=== PATIENT | male | born 1985 | race Caucasian/White ===

== ENCOUNTER 2024-12-09 20:03 | Inpatient (IN) | payer OTHER, SELFPAY ==
[2024-12-09] VITALS (45 sets, daily range): BP systolic 81–158; BP diastolic 42–109; BMI 34.6
[2024-12-09 17:52] LABS: % Basophils 0.6 % (0-2); % Eosinophils 4.4 % (0-6); % Immature Granulocytes 0.4 % (0-0.5); % Lymphocytes 18.1 % (20.5-51.1); % Monocytes 10.3 % (1.7-9.3); % Neutrophils 66.2 % (42.2-75.2); Absolute Basophils 0.1 10^3/uL (0-0.2); Absolute Eosinophils 0.4 10^3/uL (0-0.7); Absolute Lymphocytes 1.6 10^3/uL (1.2-3.4); Absolute Monocytes 0.9 10^3/uL (0.1-0.6); Absolute Neutrophils 5.9 10^3/uL (1.4-6.5); Hematocrit 37.2 % (39.0-52.0); Hemoglobin 12.4 g/dL (13.0-18.0); Mean Corp Hgb Conc. 33.3 g/dL (33.0-37.0); Mean Corpuscular Hgb 29.2 pg (27.0-31.0); Mean Corpuscular Volume 87.7 fL (80.0-94.0); Mean Platelet Volume 11.1 fL (7.4-10.4); Nucleated Red Blood Cells % 0 % (-); Platelet Count 179 10^3/uL (130-400); Red Blood Cell Count 4.24 10^6/uL (4.70-6.10); Red Cell Dist. Width 13.5 % (11.5-14.5); White Blood Cell Count 8.9 10^3/uL (4.8-10.8)
[2024-12-09] MEDS: NARCAN 2 MG IV (18:06)
--- NOTE | 2024-12-09 18:07 | PHANOTE ---
med rec note- patient has no recent ecw, ecw from 2021 no current pdmp and only pharmacy Available. no family with patient
--- NOTE | 2024-12-09 18:10 | ED.GENMED ---
History of Present Illness
<Lindsey Law PA-C - Last Filed: 12/11/24 09:38>
General
Chief Complaint: Overdose Intentional
Source: ambulance crew
Exam Limitations: clinical condition and altered mental status
Time Seen by Provider: 12/09/24 18:07
Nursing documentation reviewed up to this point in time: agreed with
History of Present Illness
History of Present Illness:
PT IS A 39 Y/O M
known drug abuse
alcohol abuse
history given by his on the phone ane EMS
just released from [facility]
found him slumpd in the shower but was ablle to wake him up, he was able to walk but then got drowsy again and laid down on the bed, lips were blue
but he was breathing
found his phone and saw he took a n uber to [facility] today
and she saw that he had a pill bottle of 60 klonopin and 30 were missing and she believes he used heroin and probably xanx too
pt was unreasponbive for EMS
they placed nasal trumpet and gave 6 mg total iv narcan without response
pt is obtunded
Past History
<Lindsey Law PA-C - Last Filed: 12/11/24 09:38>
Past History
ED Past Medical History: Psychiatric (Bipolar disorder, substance abuse) and Other (Hepatitis C, Overdose); Negative Asthma, HTN, Hypercholesterolemia or NIDDM
ED Past Surgical History: Orthopedic and Other (Partial thyroidectomy)
Social History
Tobacco: Smoker
Alcohol: None
Drug: Cocaine, Narcotics and IVDA
Personal:
Living: with family (According to Millie raines, currently on house arrest)
Employment: Not employed
Family History
Family History: Other (Noncontributory)
Review of Systems
<Lindsey Law PA-C - Last Filed: 12/11/24 09:38>
Review of Systems
Allergies reviewed?: Yes
Unable to obtain full review of systems at this time due to: due to acuity
Other source history: family
All Other Systems: Not applicable
Phy Exam
<Lindsey Law PA-C - Last Filed: 12/11/24 09:38>
Physical Exam
Physical Exam:
GENERAL: obtunded, unresponsive, breathing spontaneously,
EYE: pupils equal and reactive pinpoint
NECK: Supple
ENT: o/p clr, mmm.
CARDIAC: Regular rate and rhythm .
LUNGS: rhonchi, no acute respiratory distress, no wheezes/rales/
ABDOMEN: Soft, without focal tenderness, no r/g, no cvat, normal bowel sounds
NEUROLOGICAL: unresponsive
SKIN: Warm and dry, skin intact.
MUSCULOSKELETAL: No edema, well perfused. neg emerita's sign
PSYCH: unresponsive
Course
<Lindsey Law PA-C - Last Filed: 12/11/24 09:38>
Orders/Labs/Results
Orders:
Orders
12/09/24 Dinner
NPO
Allow oral meds: No
Allow clear liquids: No
12/09/24 17:43
Complete Blood Count/With Diff Urgent
Urine Drug Abuse Screen Urgent
Date Specimen was Collected: 12/09/24
Time Specimen was Collected: 17:42
Urine Fentanyl [Fentanyl, Urine] Urgent
12/09/24 17:45
EKG [Electrocardiogram (*1)] Urgent
Reason for Study: Tachycardia
EKG- Treatment ONCE
12/09/24 18:04
Naloxone [Narcan] 2 mg .ROUTE .STK-MED ONE
12/09/24 18:06
Naloxone [Narcan] 2 mg IV NOW STA
12/09/24 18:16
Etomidate [Amidate] 20 mg IV NOW STA
12/09/24 18:23
Succinylcholine Chloride [Anectine] 70 mg IV NOW STA
12/09/24 18:27
Rocuronium [place] [Rocuronium] 70 mg IV NOW STA
12/09/24 18:32
Portable Chest Xray [CR Chest Portable - 1 View] Urgent
Comment:
Reason For Exam: inbation
Reason Study Needs to be Portable: Patient Unstable
12/09/24 18:43
Acetaminophen Urgent
Alcohol Urgent
Comprehensive Metabolic Panel Urgent
Salicylate Urgent
Comment: ADD ON
Triglycerides Urgent
Comment: ADD ON
12/09/24 18:45
Ventilator Initial Settings [RESP] Urgent
Tidal Volume: 550
Rate: 16
FIO2: 60
PEEP: 5
12/09/24 18:46
Etomidate [Amidate] 40 mg .ROUTE .STK-MED ONE
Rocuronium [place] [Rocuronium] 100 mg .ROUTE .STK-MED ONE
12/09/24 19:02
Admit/Transfer Patient As Directed
Co-Sign Provider:
Level of Care: Inpatient admission
Assign to:: ICU
Physician / Group: hospitalist
Diagnosis: intentional drug overdose
Reason for Hospitalization: loss of consciousness due to drug overdose
Expected length of stay greater than two midnights?: Yes
ELOS- Estimated Length of Stay in days: 2
I certify the patient meets the requirements for IP care: Yes
CT Head W/o Iv Contrast Stat
Comment:
Reason For Exam: loss of consciousness
12/09/24 19:03
Code Status As Directed
Resuscitation Status: Full Code
PRN Pain Medication Management As Directed
May give lesser potent ordered pain med per pt: Yes
preference::
Protocol:: Medication orders for pain may be administered in a
manner that supports deferring to patient preference
when the pt is:
- Requesting an ordered lesser potent pain medication.
Least to most potent pain medications are defined
as: acetaminophen < NSAID < tramadol < opioids
(morphine, oxycodone, hydromorphone).
- Requesting a lesser dose of the same medication IF
ORDERED.
- Requesting a less intrusive route of administration
if both routes are prescribed by the provider (PO <
IV).
12/09/24 19:26
Pulse Ox/cont/shift [RESP] Routine
Quantity: 1
Special Instructions: continuous pulse oximetry with audible alarm set at 92%
12/09/24 19:39
Propofol [Diprivan] 20 ml .ROUTE .STK-MED
12/09/24 19:43
Propofol 1,000,000 Mcg/100 ml [Diprivan] 1,000,000 mcg in 100 ml .ROUTE .STK-MED
12/09/24 19:44
Lactated Ringers [Lr] 1,000 ml IV BOLUS
12/09/24 20:00
Propofol 1,000,000 Mcg/100 ml [Diprivan] 1,000,000 mcg in 100 ml IV PER PROTOCOL
Indication:: Deep Sedation
Begin Infusion:: Now
Goal:: RASS -3 to -5 or BIS < 60 or ventilator synchrony
Maximum dose in mcg/kg/min:: 50
Continue currently infusion dose and titrate:: Yes
Titration Instructions:: Titrate by 5-10 mcg/kg/min every 5 minutes until RASS -3 to -5 or
Titration Instructions:: BIS < 60 or ventilator synchrony is met.
Titration Instructions:: Administer analgesia bolus dose(s) & titrate analgesia prior to
Titration Instructions:: adjusting sedation.
Taper Instructions:: If RASS is at or below goal for 4 consecutive hours decrease infusion by
Taper Instructions:: 5-10 mcg/kg/min every 2 hours. Do not wean infusion to off if patient is
Taper Instructions:: receiving a continuous NMBA or has received bolus NMBA with the past 3 hrs
Over-sedation Instructions:: If BIS < 40 and synchronous with ventilator decrease infusion by
Over-sedation Instructions:: 5-10 mcg/kg/min every 2 hour until BIS = 40-60.
Notify provider:: immediately if patient exhibits signs/symptoms of propofol-related
Notify provider:: infusion syndrome.
Additional Instructions:: Patient MUST be mechanically ventilated and MUST receive analgesia.
12/09/24 20:48
Acetaminophen [Tylenol/Feverall] 650 mg RECTAL Q4HPRN PRN
Albuterol Nebs [Ventolin Nebules] 2.5 mg INH R QID
Bisacodyl [Dulcolax] 10 mg RECTAL [id number] PRN
Dextrose 5%/0.45%Sodchl 1000ML [D5/0.45%NaCl] 1,000 ml IV 100 mls/hr
Ipratropium/Albuterol Sulfate [Duoneb] 3 ml INH R Q4HPRN PRN
Ondansetron Injectable [Zofran] 4 mg IV Q6HPRN PRN
12/09/24 20:48
Hide Cleaner Consult Routine
Consulting Provider: Marquis Gutierrez
Was physician already notified: Yes
Reason for consult: Intentional overdose, LOC and intubated
Activity As Directed
Activity Level: With Assistance
Capnography/ETCO2 As Directed
Gastrointestinal Tubes As Directed
To suction?: Yes
Type of suction: Low intermittent
Intake/ Output As Directed
Frequency: Per unit guidelines
Vital Signs As Directed
Frequency: Per unit guidelines
Pulse Ox/cont/shift [RESP] Routine
Quantity: 1
Special Instructions: continuous pulse oximetry with audible alarm set at 92%
DX Deep Vein Thrombosis Video Routine
12/09/24 21:45
Arterial Blood Gas Routine
%Oxygen/Room Air: 70
12/10/24 05:03
Basic Metabolic Panel IN AM
Complete Blood Count/No Diff IN AM
12/10/24 08:00
Pantoprazole [Protonix IV] 40 mg IV DAILY
12/10/24 18:00
Enoxaparin Sodium [Lovenox] 40 mg SC QPM
12/12/24 06:00
Triglycerides Q3D
Comment: every 72 hours while patient is on propofol
12/15/24 06:00
Triglycerides Q3D
Comment: every 72 hours while patient is on propofol
12/18/24 06:00
Triglycerides Q3D
Comment: every 72 hours while patient is on propofol
Abnormal Lab Results
12/09/24 12/09/24
17:43 18:43
RBC 4.24 L 10^6/uL
(4.70-6.10)
Hgb 12.4 L g/dL
(13.0-18.0)
Hct 37.2 L %
(39.0-52.0)
MPV 11.1 H fL
(7.4-10.4)
Absolute Monos (auto) 0.9 H 10^3/uL
(0.1-0.6)
Lymphocytes % 18.1 L %
(20.5-51.1)
Monocytes % 10.3 H %
(1.7-9.3)
Potassium 5.3 H mmol/L
(3.5-5.1)
Glucose 116 H mg/dl
(70-99)
ALT 72 H U/L
(0-50)
Salicylates < 1.0 L mg/dl
(2.0-20.0)
Ur Buprenorphine Positive H
(Negative)
Urine Methadone Screen Positive H
(Negative)
Urine Fentanyl Screen Positive H
(Negative)
Acetaminophen < 10 L ug/ml
(10-30)
U Benzodiazepines Scrn Positive H
(Negative)
Urine Cocaine Screen Positive H
(Negative)
12/09/24 17:43
12/09/24 18:43
Vital Signs
Initial and Last Documented VS:
Initial Vital Signs
Temp Pulse Resp BP Pulse Ox
36.9 C 93 18 105/72 98
12/09/24 17:35 12/09/24 17:35 12/09/24 17:35 12/09/24 17:35 12/09/24 17:35
Last Documented Vital Signs
Temp Pulse Resp BP Pulse Ox
37.7 C 93 16 107/65 93
12/11/24 07:15 12/11/24 08:14 12/11/24 08:14 12/11/24 07:00 12/11/24 09:18
<Darya Mcneil, - Last Filed: 12/09/24 19:18>
Orders/Labs/Results
Orders:
Orders
12/09/24 Dinner
NPO
Allow oral meds: No
Allow clear liquids: No
12/09/24 17:43
Complete Blood Count/With Diff Urgent
Urine Drug Abuse Screen Urgent
Date Specimen was Collected: 12/09/24
Time Specimen was Collected: 17:42
Urine Fentanyl [Fentanyl, Urine] Urgent
12/09/24 17:45
EKG [Electrocardiogram (*1)] Urgent
Reason for Study: Tachycardia
EKG- Treatment ONCE
12/09/24 18:04
Naloxone [Narcan] 2 mg .ROUTE .STK-MED ONE
12/09/24 18:06
Naloxone [Narcan] 2 mg IV NOW STA
12/09/24 18:16
Etomidate [Amidate] 20 mg IV NOW STA
12/09/24 18:23
Succinylcholine Chloride [Anectine] 70 mg IV NOW STA
12/09/24 18:27
Rocuronium [place] [Rocuronium] 70 mg IV NOW STA
12/09/24 18:32
Portable Chest Xray [CR Chest Portable - 1 View] Urgent
Comment:
Reason For Exam: inbation
Reason Study Needs to be Portable: Patient Unstable
12/09/24 18:43
Acetaminophen Urgent
Alcohol Urgent
Comprehensive Metabolic Panel Urgent
Salicylate Urgent
Comment: ADD ON
Triglycerides Urgent
Comment: ADD ON
12/09/24 18:45
Ventilator Initial Settings [RESP] Urgent
Tidal Volume: 550
Rate: 16
FIO2: 60
PEEP: 5
12/09/24 18:46
Etomidate [Amidate] 40 mg .ROUTE .STK-MED ONE
Rocuronium [place] [Rocuronium] 100 mg .ROUTE .STK-MED ONE
12/09/24 19:02
Admit/Transfer Patient As Directed
Co-Sign Provider:
Level of Care: Inpatient admission
Assign to:: ICU
Physician / Group: hospitalist
Diagnosis: intentional drug overdose
Reason for Hospitalization: loss of consciousness due to drug overdose
Expected length of stay greater than two midnights?: Yes
ELOS- Estimated Length of Stay in days: 2
I certify the patient meets the requirements for IP care: Yes
CT Head W/o Iv Contrast Stat
Comment:
Reason For Exam: loss of consciousness
12/09/24 19:03
Code Status As Directed
Resuscitation Status: Full Code
PRN Pain Medication Management As Directed
May give lesser potent ordered pain med per pt: Yes
preference::
Protocol:: Medication orders for pain may be administered in a
manner that supports deferring to patient preference
when the pt is:
- Requesting an ordered lesser potent pain medication.
Least to most potent pain medications are defined
as: acetaminophen < NSAID < tramadol < opioids
(morphine, oxycodone, hydromorphone).
- Requesting a lesser dose of the same medication IF
ORDERED.
- Requesting a less intrusive route of administration
if both routes are prescribed by the provider (PO <
IV).
12/09/24 19:26
Pulse Ox/cont/shift [RESP] Routine
Quantity: 1
Special Instructions: continuous pulse oximetry with audible alarm set at 92%
12/09/24 19:39
Propofol [Diprivan] 20 ml .ROUTE .STK-MED
12/09/24 19:43
Propofol 1,000,000 Mcg/100 ml [Diprivan] 1,000,000 mcg in 100 ml .ROUTE .STK-MED
12/09/24 19:44
Lactated Ringers [Lr] 1,000 ml IV BOLUS
12/09/24 20:00
Propofol 1,000,000 Mcg/100 ml [Diprivan] 1,000,000 mcg in 100 ml IV PER PROTOCOL
Indication:: Deep Sedation
Begin Infusion:: Now
Goal:: RASS -3 to -5 or BIS < 60 or ventilator synchrony
Maximum dose in mcg/kg/min:: 50
Continue currently infusion dose and titrate:: Yes
Titration Instructions:: Titrate by 5-10 mcg/kg/min every 5 minutes until RASS -3 to -5 or
Titration Instructions:: BIS < 60 or ventilator synchrony is met.
Titration Instructions:: Administer analgesia bolus dose(s) & titrate analgesia prior to
Titration Instructions:: adjusting sedation.
Taper Instructions:: If RASS is at or below goal for 4 consecutive hours decrease infusion by
Taper Instructions:: 5-10 mcg/kg/min every 2 hours. Do not wean infusion to off if patient is
Taper Instructions:: receiving a continuous NMBA or has received bolus NMBA with the past 3 hrs
Over-sedation Instructions:: If BIS < 40 and synchronous with ventilator decrease infusion by
Over-sedation Instructions:: 5-10 mcg/kg/min every 2 hour until BIS = 40-60.
Notify provider:: immediately if patient exhibits signs/symptoms of propofol-related
Notify provider:: infusion syndrome.
Additional Instructions:: Patient MUST be mechanically ventilated and MUST receive analgesia.
12/09/24 20:48
Acetaminophen [Tylenol/Feverall] 650 mg RECTAL Q4HPRN PRN
Albuterol Nebs [Ventolin Nebules] 2.5 mg INH R QID
Bisacodyl [Dulcolax] 10 mg RECTAL [id number] PRN
Dextrose 5%/0.45%Sodchl 1000ML [D5/0.45%NaCl] 1,000 ml IV 100 mls/hr
Ipratropium/Albuterol Sulfate [Duoneb] 3 ml INH R Q4HPRN PRN
Ondansetron Injectable [Zofran] 4 mg IV Q6HPRN PRN
12/09/24 20:48
Hide Cleaner Consult Routine
Consulting Provider: Marquis Gutierrez
Was physician already notified: Yes
Reason for consult: Intentional overdose, LOC and intubated
Activity As Directed
Activity Level: With Assistance
Capnography/ETCO2 As Directed
Gastrointestinal Tubes As Directed
To suction?: Yes
Type of suction: Low intermittent
Intake/ Output As Directed
Frequency: Per unit guidelines
Vital Signs As Directed
Frequency: Per unit guidelines
Pulse Ox/cont/shift [RESP] Routine
Quantity: 1
Special Instructions: continuous pulse oximetry with audible alarm set at 92%
DX Deep Vein Thrombosis Video Routine
12/09/24 21:45
Arterial Blood Gas Routine
%Oxygen/Room Air: 70
12/10/24 05:03
Basic Metabolic Panel IN AM
Complete Blood Count/No Diff IN AM
12/10/24 08:00
Pantoprazole [Protonix IV] 40 mg IV DAILY
12/10/24 18:00
Enoxaparin Sodium [Lovenox] 40 mg SC QPM
12/12/24 06:00
Triglycerides Q3D
Comment: every 72 hours while patient is on propofol
12/15/24 06:00
Triglycerides Q3D
Comment: every 72 hours while patient is on propofol
12/18/24 06:00
Triglycerides Q3D
Comment: every 72 hours while patient is on propofol
Abnormal Lab Results
12/09/24 12/09/24
17:43 18:43
RBC 4.24 L 10^6/uL
(4.70-6.10)
Hgb 12.4 L g/dL
(13.0-18.0)
Hct 37.2 L %
(39.0-52.0)
MPV 11.1 H fL
(7.4-10.4)
Absolute Monos (auto) 0.9 H 10^3/uL
(0.1-0.6)
Lymphocytes % 18.1 L %
(20.5-51.1)
Monocytes % 10.3 H %
(1.7-9.3)
Potassium 5.3 H mmol/L
(3.5-5.1)
Glucose 116 H mg/dl
(70-99)
ALT 72 H U/L
(0-50)
Salicylates < 1.0 L mg/dl
(2.0-20.0)
Ur Buprenorphine Positive H
(Negative)
Urine Methadone Screen Positive H
(Negative)
Urine Fentanyl Screen Positive H
(Negative)
Acetaminophen < 10 L ug/ml
(10-30)
U Benzodiazepines Scrn Positive H
(Negative)
Urine Cocaine Screen Positive H
(Negative)
12/09/24 17:43
12/09/24 18:43
Vital Signs
Initial and Last Documented VS:
Initial Vital Signs
Temp Pulse Resp BP Pulse Ox
36.9 C 93 18 105/72 98
12/09/24 17:35 12/09/24 17:35 12/09/24 17:35 12/09/24 17:35 12/09/24 17:35
Last Documented Vital Signs
Temp Pulse Resp BP Pulse Ox
37.7 C 93 16 107/65 93
12/11/24 07:15 12/11/24 08:14 12/11/24 08:14 12/11/24 07:00 12/11/24 09:18
Procedures
<Darya Mcneil DO - Last Filed: 12/09/24 19:18>
Intubations
Procedure completed by: Darya Mcneil DO
Method of Intubation: glidescope
Tube size (cm): 7.5
Placement confirmed by: auscutation and CXR
Breath sounds after intubation: equal
Intubation complications: no complications
<Lindsey Law PA-C - Last Filed: 12/11/24 09:38>
MDM/Problems Addressed
Differential Diagnosis Includes:
overdose, AMS, resp distress
MDM/Problems Addressed:
39 y/o M with h/o polysubstance abuse
primary historian ex
found him semi responsive in the shower, was able to get him up and walking briefly before passingo ut on the bed, agonal breathing, lips blue, and she presumed he OD'd after she found that he had taken an uber to [facility] after recently bein
discharged from [place]
unclera what pt used
presumed to be klonopin 1 mg (had 60 tabs filled 3 days ago and 30 left) as well as presumed heroin with his history
unforunately pt did not respond at all to narcan in the field
arrived on 100% NRB and with nasal trumpet, breathing on his own, no gag reflex, no pain reflex
we did try 1 more dose 2 mg IV narcan with no response;
pin point pupils, no sign head trauma
and was promptly intubated by the attending physician dr. mcneil for airway protection
his work up is pos for BZ, bupenorphine, cocaine, fentanyl, methadone
no alcohol
no tylenol
awaiting salicylate
signed out to [facility], who asked that i contact poison control and they did not recommend additional treatment, did agre with narcan drip but aware pt did not respond to narcan
supportive care in ICU until meds clear.
<Darya Mcneil DO - Last Filed: 12/09/24 19:18>
*Critical Care Note
Total Time (30-74mins, 75-104mins- exclusive of procedures): 55
comment:
The high probability of a clinically significant, sudden or life threatening deterioration of the respiratory and neurologic system(s) required my full and direct attention, intervention and personal management. The aggregate critical care time was
55 minutes. This time is in addition to time spent performing reported procedures but includes the following:
[x] Data Review and interpretation
[x] Patient assessment and monitoring of vital signs
[x] Documentation
[x] Medication orders and management
ED Attending Note
<Lindsey Law PA-C - Last Filed: 12/11/24 09:38>
-
Portions of this chart may have been created with voice recognition software.� Occasional wrong word or��sound alike� substitutions may have occurred due to the inherent limitations of voice recognition software.
<Darya Mcneil DO - Last Filed: 12/09/24 19:18>
ED Attending Note
Patient seen and examined by attending physician: Yes
I performed the substantive portion of visit, reviewed & personally made and approve the management plan that is documented in note by myself or MY.: Yes
I performed a history and physical exam of patient and discussed management with resident, I reviewed resident's note and agree with documented findings and plan of care.: Yes
ED Attending Note:
39-year-old male with history of polysubstance abuse presenting for unresponsive state. Patient arrives after his allegedly found him unresponsive. Patient had just gotten out of the shower, and she notes that his lips looked blue. She
reports that he was still spontaneously breathing. She checked his phone and saw that he had gotten an Uber from [place]. Patient with history of substance abuse, recently discharged from [facility] for rehab. Patient with history of
opiate abuse. And on review of EMR, history of cocaine abuse. Patient had been given Narcan by medics without any response. Per medics, patient allegedly ingested 30 tablets of Klonopin in the past 3 days, with suspected concomitant use of Xanax
and heroin. Patient unable to comply with any additional history or questioning given clinical condition. Vital signs on arrival are normal, however patient arrives on nonrebreather.
On exam, pupils are pinpoint. No clinical signs of trauma. Patient with minimal responsiveness, without any response to pain or verbal stimuli. Concern for acute drug overdose. Initial attempt at Narcan, however no response. For this reason
respiratory called for intubation for airway protection. Patient was intubated without issue. Please see procedure note. Plan for laboratory analysis, CT brain imaging, admission for acute drug overdose with acute respiratory failure. made
aware. Unclear if patient was trying to harm himself. Will require reassessment from a psychiatric standpoint once more clinically stable and awake/alert
Discharge Plan
Departure
Patient Disposition: Admit
Date of Disposition: 12/09/24
Time of Disposition: 18:29
Admit to: ICU
Presentation/result/management discussed w/ accepting MD/DO: Hospitalist
Patient with high blood pressure during this ER visit?: No
Condition: Critical
Discharge Problem:
Overdose, Altered mental status
Interventions
Interventions:
*Risk Screen - Suicide Last Done: 12/09/24 17:35
*General Assessment Last Done: 12/09/24 17:35
*Neglect/Abuse Screening Last Done: 12/09/24 17:35
*ED- Fall Risk Assessment Last Done: 12/09/24 17:35
*ED COVID-19 Vaccine History Last Done: 12/09/24 17:35
*Nursing Disposition Last Done: 12/09/24 20:37
ED- Cardiac Assessment Last Done: 12/09/24 17:35
ED- Neurological Assessment Last Done: 12/09/24 17:35
ED-Psychological Assessment Last Done: 12/09/24 17:35
ED- Pulmonary Assessment Last Done: 12/09/24 18:21
Discharge Date and Time
Discharge Date/Time: 12/09/24 20:38
[2024-12-09] MEDS: ROCURONIUM 70 MG IV (18:16)
[2024-12-09] MEDS: AMIDATE 20 MG IV (18:16)
[2024-12-09 18:42] LABS: Fentanyl, Urine Positive (Negative)
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
[2024-12-09 19:06] LABS: Amphetamines Negative (Negative); Barbiturates Negative (Negative); Benzodiazepines Positive (Negative); Buprenorphine Positive (Negative); Cocaine Positive (Negative); Marijuana Negative (Negative); Methadone Positive (Negative); Methamphetamines Negative (Negative); Opiates Negative (Negative); Phencyclidine Negative (Negative); Tricyclic Antidepressants Negative (Negative)
[2024-12-09 19:09] LABS: ALT (SGPT) 72 U/L (0-50); AST (SGOT) 42 U/L (17-59); Albumin 4.2 g/dl (3.5-5.0); Alkaline Phosphatase 67 U/L (38-126); Blood Urea Nitrogen 20 mg/dl (9-20); Calcium 8.6 mg/dl (8.4-10.2); Carbon Dioxide 26 mmol/L (22-30); Chloride 102 mmol/L (98-107); Estimated Creatinine Clearance > 125 ml/min; Glucose 116 mg/dl (70-99); Potassium 5.3 mmol/L (3.5-5.1); Sodium 136 mmol/L (135-145); Total Bilirubin 0.7 mg/dl (0.2-1.3); Total Protein 6.9 g/dl (6.3-8.2); eGFR > 60.00
[2024-12-09 19:11] LABS: Acetaminophen < 10 ug/ml (10-30)
[2024-12-09 19:12] LABS: Alcohol None Detected
[2024-12-09] MEDS: LR 1000 IV (19:54)
[2024-12-09 20:21] LABS: Salicylate < 1.0 mg/dl (2.0-20.0)
--- NOTE | 2024-12-09 20:46 | RESPNOTE ---
ETT advanced to 25cm kelly post initial intubation xray
--- NOTE | 2024-12-09 21:00 | PTCARENOTE ---
Pt admit to ICU from ED. Intubated. ETT #7.5, 25cm at the lip. Propofol infusing at 30mcg. AC settings
16/550/+5/40%. OG tube 70 cm at the lip, draining green gastric content - connected to low intermittent suction. Bloom placed.
[2024-12-09] MEDS: VENTOLIN NEBULES 2.5 MG INH (21:02)
--- NOTE | 2024-12-09 21:17 | W.PN.UPDATE ---
Update Note
Progress Note Update
Patient currently off one to one observation (PT sedated and restrained). Consider one to one observation with weaning of sedation. (Unsure if overdose was intentional for suicide.)
[2024-12-09] MEDS: D5/0.45%NACL 1000 IV (21:27)
[2024-12-09 21:29] LABS: Glucose - Point of Care 93 mg/dl (70-99)
[2024-12-09 21:52] LABS: B.E. 2.4 mmol/L; HCO3 27.2 mmol/L (21-28); O2 Saturation % 99.7 % (94-98); PCO2 42 mmHg (35-48); PO2 107 mmHg (83-108); pH 7.42 (7.35-7.45)
[2024-12-09 22:50] LABS: Triglycerides 67 mg/dl (10-149)
[2024-12-09] MEDS: VERSED 2 MG IV (23:16)
[2024-12-09] MEDS: VERSED 5 MG IV (23:25)
[2024-12-09] MEDS: PRECEDEX 100 IV (23:42)
[2024-12-10] VITALS (63 sets, daily range): BP systolic 81–117; BP diastolic 49–92; BMI 33.8
--- NOTE | 2024-12-10 00:46 | PTCARENOTE ---
Pt awake, fighting ventilator, attempting to cough out ETT, thrashing in bed with arms and legs. Therapeutic speech ineffective. SPARMAKER Juan José Neri aware, STAT Versed - see MAR. Pt continuing to be asynchronous w/ vent. Precedex gtt added. No
further change in assessment.
[2024-12-10] MEDS: STERILE WATER FOR INJECTION 2.1 ML IM (01:22)
[2024-12-10] MEDS: ZYPREXA 10 MG IM (01:23)
[2024-12-10] MEDS: DIPRIVAN 100 IV ×5 (01:52→23:24)
--- NOTE | 2024-12-10 02:07 | PTCARENOTE ---
Pt incredibly agitated. Attempting to cough up ETT and yell the word 'help me'. Pt thrashing in bed, asynchronous with vent. INVISIBLE BRACES ORTHODONTIST Juan José Neri at bedside, one time dose IM zyprexa ordered and administered to effect.
Suctioned for moderate thick secretions w/ pink tinge through ETT. large amount of thick clear oral secretions.
[2024-12-10 05:22] LABS: Hematocrit 36.6 % (39.0-52.0); Hemoglobin 12.3 g/dL (13.0-18.0); Mean Corp Hgb Conc. 33.6 g/dL (33.0-37.0); Mean Corpuscular Hgb 29.1 pg (27.0-31.0); Mean Corpuscular Volume 86.5 fL (80.0-94.0); Mean Platelet Volume 11.2 fL (7.4-10.4); Platelet Count 169 10^3/uL (130-400); Red Blood Cell Count 4.23 10^6/uL (4.70-6.10); Red Cell Dist. Width 13.3 % (11.5-14.5)
[2024-12-10] MEDS: PRECEDEX 100 IV ×7 (05:27→23:06)
[2024-12-10 05:41] LABS: INR 0.91; PT 12.8 Sec (11.4-14.6)
[2024-12-10 05:43] LABS: APTT 23.6 Sec (23.4-35.0)
[2024-12-10 05:44] LABS: Blood Urea Nitrogen 18 mg/dl (9-20); Carbon Dioxide 26 mmol/L (22-30); Chloride 104 mmol/L (98-107); Estimated Creatinine Clearance > 125 ml/min; Glucose 114 mg/dl (70-99); Potassium 4.2 mmol/L (3.5-5.1); Sodium 139 mmol/L (135-145); eGFR > 60.00
[2024-12-10] MEDS: D5/0.45%NACL 1000 IV ×2 (06:17→16:47)
[2024-12-10] MEDS: VENTOLIN NEBULES 2.5 MG INH ×2 (07:15→19:41)
[2024-12-10] MEDS: PROTONIX IV 40 MG IV (07:50)
[2024-12-10] MEDS: NSS (PRESERVATIVE FREE) 10 ML IV (07:51)
[2024-12-10] MEDS: MIRALAX 17 GRAMS TUBE (07:51)
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
--- NOTE | 2024-12-10 09:00 | PTCARENOTE ---
pt on vent , sedated on propofol and Precedex , NSR on monitor , RASS score -3 , weaning down propofol and Precedex , plan is to restart oral psych Meds and to wean off propofol first as per streets and buildings decorator
--- NOTE | 2024-12-10 09:33 | W.PN.HOSP.TC ---
Today's Communication/Plan
-
see outlined plan
Assessment / Plan
Assessment / Plan
Assessment:
Acute drug overdose requiring intubation for airway protection
- reportedly took 30 of 60 Klonopin pills and reportedly drove to [place] to take a 'speed ball'. Unclear if related to suicide attempt
- UDS +: Buprenorphine, Methadone, Fentanyl, Benzos, Cocaine
- vent/sedation management per ICU team. currently on Precedex and Propofol drips
- currently on Zyprexa TID prn
- watch for signs of opiate withdrawal although reportedly a binge user, not daily
- psych consulted
- supportive care with IVF and PPI for GI prophylaxis
Underlying history of Bipolar disorder, anxiety, substance abuse
- med rec not completed but meds listed include Amitriptyline, Bupropion, Clonazepam, Fluvoxamine, Olanzapine, Lyrics, Topamax
- recently at [facility] - obtain records
- Psych consult
hx of Hep C
DVT ppx: Lovenox
Code: Full
Total Critical Care Time 41 minutes. I was immediately available to the patient and staff. I personally examined, reviewed labs, diagnostic images/reports, interpretations, treatment plans, discussed patient care with other providers and family
or caregivers (if patient is unable to make decisions), entered orders as appropriate and documented the medical record.
Anticipated Discharge: > 48 hours
Subjective/Interval History
-
Date of Service: December 10, 2024
intubated/sedated on vent
Objective Data
-
Labs:
Laboratory Results
12/09/24 12/10/24
21:45 05:03
WBC 9.0
Hgb 12.3 L
Hct 36.6 L
Plt Count 169
PT 12.8
INR 0.91
APTT 23.6
HCO3 27.2
Sodium 139
Potassium 4.2
Chloride 104
Carbon Dioxide 26
BUN 18
Creatinine 0.8
Glucose 114 H
Calcium 9.0
Vital Signs:
Vital Signs
Temp Pulse Resp BP Pulse Ox
98.3 F 91 20 100/77 93
12/10/24 03:20 12/10/24 07:16 12/10/24 07:16 12/10/24 06:30 12/10/24 08:02
I&O
12/09/24 12/10/24 12/11/24
06:59 06:59 06:59
Intake Total 1379.4 / 1379.4
Output Total 1430 / 1430
Balance -50.6 / -50.6
Physical Exam
-
General: Intubated
HEENT: Normocephalic and Atraumatic
Respiratory: Clear to Auscultation; Negative Wheezes
Cardiac: Regular Rhythm and S1/S2
GI: Soft
Neuro: Sedated
Psych: Calm
Data Reviewed
-
Critical Care Time (in minutes): 41
Labs: Labs Reviewed by me
[2024-12-10] MEDS: KLONOPIN 0.5 MG TUBE ×2 (10:28→20:22)
[2024-12-10] MEDS: ZYPREXA 10 MG TUBE (10:31)
[2024-12-10] MEDS: LYRICA 300 MG TUBE ×2 (10:37→20:23)
[2024-12-10] MEDS: SUBLIMAZE 50 MCG IV (12:06)
[2024-12-10] MEDS: LUVOX 50 MG TUBE (12:07)
[2024-12-10] MEDS: SUBLIMAZE 100 IV (12:07)
--- NOTE | 2024-12-10 13:39 | W.PN.UPDATE ---
Update Note
Progress Note Update
psych consult ordered. patient is intubated therefore unable to complete consult. informed hospitalist. psych will look in on him over the weekend and speak to him if he has been extubated.
--- NOTE | 2024-12-10 13:41 | W.PN.UPDATE ---
Update Note
Progress Note Update
i did review patient medications. if you are giving him zyprexa 5 mg bid would limit prn to two daily as 20 mg is usually the upper limit for zyprexa dosage. have amended the order.
--- NOTE | 2024-12-10 14:00 | PTCARENOTE ---
patients right arm edematous and firm , right hand IV gives blood return , no return from right brachial , new IV placed in left forearm , IV team notified and pt had left midline placed, the patient has track flor on his bilateral hands and
antecubitals , the patients girlfriend was here visiting and states that he usually injects into his right antecubital , she said he had a cellulitic infection on his right arm in the past , pt is ordered a ultra sound of right arm , he is
responsive now to tactile stimuli and opens his eyes , his pupils are still pinpoint and sluggish , his vital signs are stable and his urine output is adequate
--- NOTE | 2024-12-10 14:38 | CM ---
CM following re: discharge planning.
Discussed in rounds, reviewed pt's chart, met with pt and pt's maxi Daniel at bedside.
Pt is a 39 year old male, admitted with primary dx of Acute drug overdose requiring intubation for airway protection. Per chart review, allegedly took 30 of 60 Klonopin pills and reportedly drove to [place] to take a 'speed ball'. Per Rounds
meeting, pt remains intubated, continue supportive care. Psychiatry on board.
Per mari, she and the pt lived together in a 2SH, have 3 year old son. per yoancarrol, their relationship is dd on and off and they decided to sell the house and sold it a month ago. per mari pt lives in mother's house and in father's house. Pt's
parents are .
Father: Ace Loera - [phone]
Mother: Daylin Olvera [phone]
Per Mair pt's father will be out for a week, will have vacation in [facility].
Per mari, pt was incarcerated for 1 year for drugs related DUI, released in March last year, has Probation Offices (PO): Americo Ovalle [phone]. CM spoke to PO Americo and he stated that pt must to go to D&A related treatment regardless voluntary
and involuntary. PO stated that he will obtain a Court Order for involuntary D&A treatment if pt's declined to go to inpatient residential D&A rehab.
CM will follow Psychiatry recommendations. Will make a referral to [facility] when clinically appropriate and if recommended by psychiatrist.
D/C plan: Uncertain at this time. Will follow psychiatrist recommendations.
CM will follow with discharge plan updates as hospitalization progresses
[2024-12-10] MEDS: LOVENOX 40 MG SC (17:23)
[2024-12-10] MEDS: UNASYN IV ×2 (17:36→23:02)
[2024-12-10] MEDS: NICODERM TRANSDERMAL 14 MG TRANSDERM (17:36)
--- NOTE | 2024-12-10 18:28 | PTCARENOTE ---
propofol is weaned off , weaning down Precedex , pt has a RASS score of -2
--- NOTE | 2024-12-10 20:00 | PTCARENOTE ---
Received patient at 1900. Pt. currently intubated and sedated. Appears comfortable, no signs of pain/discomfort. Afebrile. Heart rhythm sinus. Blood pressure normotensive. Ventilator settings verified. Lungs sound coarse. OG tube in place to
suction. Lboom catheter in place, draining without issue. Skin as documented. Vital signs stable at this time.
[2024-12-10] MEDS: ZYPREXA 5 MG TUBE (20:24)
[2024-12-11] VITALS (48 sets, daily range): BP systolic 87–117; BP diastolic 48–71; BMI 34.4
--- NOTE | 2024-12-11 | PTCARENOTE ---
Pt. having increased periods of agitation, waking up, asynchronous with ventilator. Propofol gtt restarted. Pt. more calm now. Resting, but arousable to voice. Vital signs stable at this time.
[2024-12-11] MEDS: PRECEDEX 100 IV ×7 (02:58→23:06)
[2024-12-11] MEDS: D5/0.45%NACL 1000 IV (03:23)
[2024-12-11 03:56] LABS: Mean Corp Hgb Conc. 33.3 g/dL (33.0-37.0); Mean Corpuscular Hgb 28.8 pg (27.0-31.0); Mean Corpuscular Volume 86.5 fL (80.0-94.0); Mean Platelet Volume 11.4 fL (7.4-10.4); Platelet Count 171 10^3/uL (130-400); Red Blood Cell Count 4.16 10^6/uL (4.70-6.10); Red Cell Dist. Width 13.5 % (11.5-14.5); White Blood Cell Count 12.1 10^3/uL (4.8-10.8)
--- NOTE | 2024-12-11 04:00 | PTCARENOTE ---
Pt. oxygen saturation dropping down to 88%. Suctioning performed multiple times. 02 saturation not improving. Respiratory therapist made aware. Fi02 increased from 40% to 60%. Pt. 02 saturation now in 90s. AM labs drawn. Vital signs stable at this
time.
[2024-12-11 04:17] LABS: ALT (SGPT) 43 U/L (0-50); AST (SGOT) 27 U/L (17-59); Albumin 3.3 g/dl (3.5-5.0); Alkaline Phosphatase 68 U/L (38-126); Blood Urea Nitrogen 15 mg/dl (9-20); Calcium 8.1 mg/dl (8.4-10.2); Carbon Dioxide 23 mmol/L (22-30); Chloride 104 mmol/L (98-107); Estimated Creatinine Clearance > 125 ml/min; Glucose 124 mg/dl (70-99); Magnesium 1.8 mg/dl (1.6-2.3); Phosphorus 4.1 mg/dl (2.5-4.5); Potassium 4.3 mmol/L (3.5-5.1); Sodium 136 mmol/L (135-145); Total Bilirubin 1.2 mg/dl (0.2-1.3); Total Protein 5.8 g/dl (6.3-8.2); eGFR > 60.00
[2024-12-11] MEDS: DIPRIVAN 100 IV ×4 (04:40→20:25)
[2024-12-11 04:48] LABS: B.E. -0.8 mmol/L; HCO3 24.3 mmol/L (21-28); O2 Saturation % 96.3 % (94-98); O2 Therapy 40; PCO2 41 mmHg (35-48); PO2 68 mmHg (83-108); pH 7.38 (7.35-7.45)
[2024-12-11] MEDS: UNASYN IV ×4 (05:36→23:06)
[2024-12-11] MEDS: SUBLIMAZE 100 IV (05:56)
[2024-12-11] MEDS: VENTOLIN NEBULES 2.5 MG INH ×2 (08:02→19:26)
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
[2024-12-11] MEDS: SUBLIMAZE 50 MCG IV (08:34)
[2024-12-11] MEDS: ZYPREXA 5 MG TUBE ×2 (08:35→19:32)
[2024-12-11] MEDS: KLONOPIN 0.5 MG TUBE ×2 (08:35→19:33)
[2024-12-11] MEDS: NSS (PRESERVATIVE FREE) 10 ML IV (08:39)
[2024-12-11] MEDS: LYRICA 300 MG TUBE ×2 (08:40→19:33)
[2024-12-11] MEDS: PROTONIX IV 40 MG IV (08:40)
[2024-12-11] MEDS: MIRALAX 17 GRAMS TUBE (08:40)
[2024-12-11] MEDS: NICODERM TRANSDERMAL 14 MG TRANSDERM (08:40)
--- NOTE | 2024-12-11 08:46 | PTCARENOTE ---
Assumed care at 07:00 Fentanyl at 50 mcg +Propofol 20+Precede 1mcg. In soft 2 point restraints upper extremities.
Patient agitated and combative RASS +4 . Propofol increased to 30mcg; Fentanyl bolus given and increased to Fentanyl 75; Precedex increased to 1.2
ETT checked at 7.5//25 left lip. VEnt SCMV 16/550/+5/60% . Unable to maintain POX abobe 90% FiO2 increased progressively from 60 to 80% AT this time pt vent 16/550/+5/80% Peak 13/VT 497/RR 21Large amount of large ruiz color oral and ETT secretion.
HOB elevated
[2024-12-11] MEDS: LASIX 40 MG IV (09:41)
--- NOTE | 2024-12-11 09:41 | PTCARENOTE ---
lasix stat given
[2024-12-11] MEDS: D5/0.45%NACL IV (11:30)
--- NOTE | 2024-12-11 12:40 | W.PN.UPDATE ---
Update Note
Progress Note Update
Psychiatry attempted to evaluation patient but he remains intubated. I will check back tomorrow.
--- NOTE | 2024-12-11 13:20 | W.PN.HOSP.TC ---
Today's Communication/Plan
-
scheduled oxycodone to help wean sedation drips
IV Unasyn
Assessment / Plan
Assessment / Plan
Assessment:
Acute drug overdose requiring intubation for airway protection
- reportedly took 30 of 60 Klonopin pills and reportedly drove to [employer] to take a 'speed ball'. Unclear if related to suicide attempt
- UDS +: Buprenorphine, Methadone, Fentanyl, Benzos, Cocaine
- vent/sedation management per ICU team. currently on Precedex and Propofol drips
- prn restraints
- currently on Zyprexa TID prn
- watch for signs of opiate withdrawal although reportedly a binge user, not daily. Daily Oxycodone started.
- psych consulted for evaluation post-extubation
- supportive care with IVF and PPI for GI prophylaxis
Underlying history of Bipolar disorder, anxiety, substance abuse
- home meds include Bupropion, Clonazepam, Hydroxyzine pamoate, Olanzapine, Lyrica
- recently at [facility] - obtain records
- Psych consulted
Aspiration pneumonia
- continue Unasyn day 2
- s/p IV Lasix x 1 for pulm edema
hx of Hep C
DVT ppx: Lovenox
Code: Full
Total Critical Care Time 41 minutes. I was immediately available to the patient and staff. I personally examined, reviewed labs, diagnostic images/reports, interpretations, treatment plans, discussed patient care with other providers and family
or caregivers (if patient is unable to make decisions), entered orders as appropriate and documented the medical record.
Anticipated Discharge: > 48 hours
Subjective/Interval History
-
Date of Service: December 11, 2024
remains intubated/sedated
Objective Data
-
Labs:
Laboratory Results
12/11/24 12/11/24
03:14 04:42
WBC 12.1 H
Hgb 12.0 L
Hct 36.0 L
Plt Count 171
HCO3 24.3
Sodium 136
Potassium 4.3
Chloride 104
Carbon Dioxide 23
BUN 15
Creatinine 0.7
Glucose 124 H
Calcium 8.1 L
Total Bilirubin 1.2
AST 27
ALT 43
Alkaline Phosphatase 68
Vital Signs:
Vital Signs
Temp Pulse Resp BP Pulse Ox
99.3 F 98 17 104/64 95
12/11/24 11:00 12/11/24 09:45 12/11/24 09:45 12/11/24 09:30 12/11/24 12:05
I&O
12/10/24 12/11/24 12/12/24
06:59 06:59 06:59
Intake Total 1379.4 / 1557.0 3864.8 / 4003.6 514.6 / 514.6
Output Total 1430 / 1480 2240 / 2340 1050 / 1050
Balance -50.6 / 77.0 1624.8 / 1663.6 -535.4 / -535.4
Physical Exam
-
General: Intubated
HEENT: Normocephalic and Atraumatic
Respiratory: Negative Wheezes
Cardiac: Regular Rhythm and S1/S2
Neuro: Sedated
Psych: Calm
Data Reviewed
-
Critical Care Time (in minutes): 44
Labs: Labs Reviewed by me
[2024-12-11] MEDS: ROXICODONE ORAL SOLUTION 5 MG TUBE ×3 (14:08→23:06)
[2024-12-11] MEDS: LOVENOX 40 MG SC (17:21)
--- NOTE | 2024-12-11 17:50 | PTCARENOTE ---
patient remains intubated and sedated; ETT: 7.5/25 cm secured to left side. Vent 16/550/+5/50% Peak 21/TV 487/16 . Suction for moderate amount of ruiz secretions . 4 point restraints with side rails in place. pupils reactive to light b/l +3; Strong
gag reflex HOB elevated indwelling mancia draining clear karthikeyan urine . Urine for Legionalle and S pneumnia send earlier
--- NOTE | 2024-12-11 20:00 | PTCARENOTE ---
Received patient at 1900. Pt. currently intubated and sedated. Appears comfortable, no signs of pain/discomfort. Afebrile. Heart rhythm sinus. Blood pressure normotensive. Ventilator settings verified. Lungs sound coarse. OG tube in place, tube
feeds running. Bloom catheter in place, draining without issue. Skin as documented. Vital signs stable at this time.
[2024-12-12] VITALS (26 sets, daily range): BP systolic 95–120; BP diastolic 56–73; BMI 34.2
--- NOTE | 2024-12-12 | PTCARENOTE ---
Pt. assessment unchanged. Pt. remains intubated and sedated. Vital signs stable.
[2024-12-12] MEDS: DIPRIVAN 100 IV ×5 (00:45→17:27)
[2024-12-12] MEDS: SUBLIMAZE 100 IV ×2 (00:55→19:09)
[2024-12-12] MEDS: PRECEDEX 100 IV ×7 (02:47→23:15)
[2024-12-12 03:32] LABS: Hematocrit 34.7 % (39.0-52.0); Hemoglobin 11.6 g/dL (13.0-18.0); Mean Corp Hgb Conc. 33.4 g/dL (33.0-37.0); Mean Corpuscular Hgb 29.1 pg (27.0-31.0); Platelet Count 183 10^3/uL (130-400); Red Blood Cell Count 3.99 10^6/uL (4.70-6.10); Red Cell Dist. Width 13.6 % (11.5-14.5); White Blood Cell Count 11.3 10^3/uL (4.8-10.8)
--- NOTE | 2024-12-12 04:00 | PTCARENOTE ---
Pt. assessment remains unchanged. AM labs drawn. Vital signs stable at this time.
[2024-12-12 04:09] LABS: Blood Urea Nitrogen 14 mg/dl (9-20); Calcium 8.6 mg/dl (8.4-10.2); Carbon Dioxide 22 mmol/L (22-30); Chloride 109 mmol/L (98-107); Estimated Creatinine Clearance > 125 ml/min; Glucose 124 mg/dl (70-99); Sodium 139 mmol/L (135-145); Triglycerides 210 mg/dl (10-149); eGFR > 60.00
[2024-12-12] MEDS: UNASYN IV ×4 (05:02→23:29)
[2024-12-12] MEDS: ROXICODONE ORAL SOLUTION 5 MG TUBE ×2 (05:02→13:34)
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
--- NOTE | 2024-12-12 09:10 | PTCARENOTE ---
Assumed care at 0700 Patient intubated and sedated. Vent (S)CMV 16/550/+5/50% Peak 21 pt's VTE 528ml RR 16 b/min Suction for small amount ruiz thin; oral care done, Bloom care done. Sedation : Propofol 35/Precedex 1mcg/Fentanyl 50; Plan to wean
patient off sedation slow. At this time Propofol decreased to 25 mcg . Patient require 4 point restraints due to been combative HOB elevated
[2024-12-12] MEDS: NICODERM TRANSDERMAL 14 MG TRANSDERM (09:16)
[2024-12-12] MEDS: MIRALAX 17 GRAMS TUBE (09:17)
[2024-12-12] MEDS: PROTONIX IV 40 MG IV (09:17)
[2024-12-12] MEDS: KLONOPIN 0.5 MG TUBE ×2 (09:17→19:14)
[2024-12-12] MEDS: ZYPREXA 5 MG TUBE (09:17)
[2024-12-12] MEDS: LYRICA 300 MG TUBE ×2 (09:17→19:14)
[2024-12-12] MEDS: NSS (PRESERVATIVE FREE) 10 ML IV (09:17)
[2024-12-12] MEDS: SUBLIMAZE 50 MCG IV ×4 (09:32→17:43)
--- NOTE | 2024-12-12 09:34 | PTCARENOTE ---
while on Propofol 25 mcg patient RASS 4 aginated and combative
--- NOTE | 2024-12-12 09:56 | W.PN.HOSP.TC ---
Addendum entered and electronically signed by Gretta Watson MD 12/15/24 10:04:
Acute pulm edema
Original Note:
Today's Communication/Plan
-
4 point leather restraints if available
wean sedation as able
wean vent as able
continue Abx
Assessment / Plan
Assessment / Plan
Assessment:
Acute drug overdose requiring intubation for airway protection
- reportedly took 30 of 60 Klonopin pills and reportedly drove to [employer] to take a 'speed ball'. Unclear if related to suicide attempt.
- UDS +: Buprenorphine, Methadone, Fentanyl, Benzos, Cocaine
- vent/sedation management per ICU team. currently on Precedex and Propofol drips
- leather restraints
- currently on Zyprexa TID prn
- watch for signs of opiate withdrawal although reportedly a binge user, not daily. Daily Oxycodone started.
- psych consulted for evaluation post-extubation
- supportive care with IVF and PPI for GI prophylaxis
Underlying history of Bipolar disorder, anxiety, substance abuse
- home meds include Bupropion, Clonazepam, Hydroxyzine pamoate, Olanzapine, Lyrica
- recently at [facility] - obtain records
- Psych consulted
Aspiration pneumonia
- continue Unasyn day 3
- s/p IV Lasix x 1 for pulm edema
hx of Hep C
DVT ppx: Lovenox
Code: Full
Total Critical Care Time 41 minutes. I was immediately available to the patient and staff. I personally examined, reviewed labs, diagnostic images/reports, interpretations, treatment plans, discussed patient care with other providers and family
or caregivers (if patient is unable to make decisions), entered orders as appropriate and documented the medical record.
Anticipated Discharge: > 48 hours
Subjective/Interval History
-
Date of Service: December 12, 2024
remains intubated/sedated
aggressive behavior with small titrations of sedation
Objective Data
-
Labs:
Laboratory Results
12/12/24
03:11
WBC 11.3 H
Hgb 11.6 L
Hct 34.7 L
Plt Count 183
Sodium 139
Potassium 4.0
Chloride 109 H
Carbon Dioxide 22
BUN 14
Creatinine 0.7
Glucose 124 H
Calcium 8.6
Vital Signs:
Vital Signs
Temp Pulse Resp BP Pulse Ox
97.6 F 80 16 112/62 94
12/12/24 08:00 12/12/24 09:00 12/12/24 09:00 12/12/24 09:00 12/12/24 09:19
I&O
12/11/24 12/12/24 12/13/24
06:59 06:59 06:59
Intake Total 3864.8 / 4003.6 1943.9 / 1993.8 49.9 / 49.9
Output Total 2240 / 2340 2750 / 2800 50 / 50
Balance 1624.8 / 1663.6 -806.1 / -806.2 -0.1 / -0.1
Physical Exam
-
General: Intubated
HEENT: Normocephalic and Atraumatic
Cardiac: Regular Rhythm and S1/S2
GI: Soft
Neuro: Sedated
Psych: Calm
Data Reviewed
-
Critical Care Time (in minutes): 41
Labs: Labs Reviewed by me
--- NOTE | 2024-12-12 10:26 | W.PN.UPDATE ---
Update Note
Progress Note Update
Psychiatry consult service. Attempted to see patient but he remains intubated. Team will try again tomorrow.
[2024-12-12] MEDS: LOVENOX 40 MG SC (17:28)
[2024-12-12] MEDS: ROXICODONE ORAL SOLUTION 10 MG TUBE (17:44)
--- NOTE | 2024-12-12 18:35 | PTCARENOTE ---
intubated and sedated. Patient requires 4 points restraints Propofol+Precedex + Fentanyl
--- NOTE | 2024-12-12 19:00 | PTCARENOTE ---
Vital signs pulled from 1500. Cannot verify vitals from [id number].
[2024-12-12] MEDS: ZYPREXA 10 MG TUBE (19:14)
--- NOTE | 2024-12-12 19:15 | PTCARENOTE ---
Addendum entered by Nessa Calero RN 12/12/24 22:20:
Bilateral pupils 1mm and sluggish.
Original Note:
Assumed care. Patient received lying in bed, sedated and intubated on ventilator. Sedation with Precedex, Propofol and Fentanyl, doses verified. Patient is moderately to heavily sedated; medications titrated for RASS -2, see flowsheet. Left midline
site WDL, flushes easily. VSS, low grade temp 99.6F core, excess linens removed, room temperature is cool. #7.5ETT 25cm at the lip on the left. Vent settings verified, AC 16/TV 550/FiO2 40%/PEEP +5. Lips very dry, oral care rendered and suctioned
oral for moderate amount of thick ruiz secretions. No secretions via ETT. BBS with UL clear and bilateral bases diminished. S1S2 regular. SR on CM with 1st degree AVB. LFA #20 IV site is infiltrated, dc'd, catheter intact. Left arm edema 3+ due to
infiltrated site, elevated on pillow. IV team notified. Pulses positive x 4 extremities. RUE 1+, bilateral hands 1+, BLE 1+ edema. SCDs donned. Bloom catheter patent draining cloudy yellow urine. OGT in place, 69cm, with Jevity 1.5 tube feeding at
45cc/hr with H2O flush at 25cc/hr. Residual is 225, reinstilled. OGT Flushed with medications given. Bilateral soft wrist restraints checked and retied, Bilateral ankle soft restraints checked and retied--checked every 2 hours and prn. Patient
repositioned every 2 hours. Bed in low and locked position. Patient is within view of this RN.
--- NOTE | 2024-12-12 22:00 | PTCARENOTE ---
Continue to titrate sedation for RASS -2, see flowsheet. Good UO via mancia catheter. New peripheral IV site started right hand #22.
[2024-12-13] VITALS (32 sets, daily range): BP systolic 89–121; BP diastolic 50–75; BMI 34.0
[2024-12-13] MEDS: ROXICODONE ORAL SOLUTION TUBE
--- NOTE | 2024-12-13 00:15 | PTCARENOTE ---
Afebrile, VSS. Excellent UO. Complete cares given, CHG cloth bath, face washed, hair washed, oral care. Bloom care was performed at 2300. With cares, noted that patient has skin tear under BP cuff on Right arm, ? tape. Wound bed pink, site appears
macerated. Cleansed with NS, Xeroform and borderfoam dressing donned.
[2024-12-13] MEDS: ROXICODONE ORAL SOLUTION 10 MG TUBE ×5 (01:28→23:34)
--- NOTE | 2024-12-13 01:30 | PTCARENOTE ---
Roxicodone initially held due to patient on Fentanyl gtt. After review of MD note, Roxicodone given. Will attempt to wean off of Fentanyl. Titrating Sedation as tolerated. Ankle restraints were removed at 0030.
[2024-12-13] MEDS: DIPRIVAN 100 IV ×5 (02:21→23:20)
[2024-12-13] MEDS: PRECEDEX 100 IV ×6 (02:33→21:39)
--- NOTE | 2024-12-13 03:45 | PTCARENOTE ---
Am labs drawn. EKG done. Weaning Fentanyl gtt off. Increasing Diprivan to maintain sedation. Patient does rouse to verbal and tactile stimuli, opens eyes. Attempting to sit up in bed, pulling at bilateral soft wrist restraints. Bilateral pupils 2mm
and more brisk than previous assessment. BBS with upper lobes clear, RML and bilateral bases diminished. No secretions via ETT. Oral secretions small thick white, oral care. BUL have been elevated on pillows t/o shift. LUE remains edematous but less
tight than previous assessment. Rest of physical assessment essentially unchanged.
[2024-12-13 03:55] LABS: Hematocrit 34.7 % (39.0-52.0); Hemoglobin 11.6 g/dL (13.0-18.0); Mean Corp Hgb Conc. 33.4 g/dL (33.0-37.0); Mean Corpuscular Volume 86.8 fL (80.0-94.0); Mean Platelet Volume 11.3 fL (7.4-10.4); Platelet Count 205 10^3/uL (130-400); Red Cell Dist. Width 13.5 % (11.5-14.5); White Blood Cell Count 7.4 10^3/uL (4.8-10.8)
[2024-12-13 04:10] LABS: Blood Urea Nitrogen 17 mg/dl (9-20); Calcium 8.3 mg/dl (8.4-10.2); Carbon Dioxide 24 mmol/L (22-30); Chloride 107 mmol/L (98-107); Estimated Creatinine Clearance > 125 ml/min; Glucose 115 mg/dl (70-99); Phosphorus 4.1 mg/dl (2.5-4.5); Sodium 141 mmol/L (135-145); eGFR > 60.00
[2024-12-13 04:16] LABS: NT-proBNP 40.5 pg/ml
[2024-12-13 05:00] LABS: B.E. 0.7 mmol/L; HCO3 25.4 mmol/L (21-28); O2 Saturation % 98.3 % (94-98); PCO2 40 mmHg (35-48); PO2 79 mmHg (83-108); pH 7.41 (7.35-7.45)
[2024-12-13] MEDS: UNASYN IV ×4 (05:32→23:34)
--- NOTE | 2024-12-13 07:15 | PTCARENOTE ---
Report given verbally to RN assuming careJen. Questions answered.
[2024-12-13] MEDS: NICODERM TRANSDERMAL 14 MG TRANSDERM (07:27)
[2024-12-13] MEDS: ZYPREXA 10 MG TUBE ×2 (07:27→19:31)
[2024-12-13] MEDS: LYRICA 300 MG TUBE ×2 (07:27→19:31)
[2024-12-13] MEDS: NSS (PRESERVATIVE FREE) 10 ML IV (07:28)
[2024-12-13] MEDS: PROTONIX IV 40 MG IV (07:28)
[2024-12-13] MEDS: KLONOPIN 0.5 MG TUBE ×2 (07:29→19:31)
[2024-12-13] MEDS: MIRALAX 17 GRAMS TUBE (07:29)
--- NOTE | 2024-12-13 07:44 | W.PN.HOSP.TC ---
Today's Communication/Plan
-
Doppler ultrasound left upper extremity
Assessment / Plan
Assessment / Plan
Gen-sedated, intubated
HEENT-NC, AT, anicteric, clear oral mm
Neck-supple
CV-reg, no M, +S1/S2
Lungs-clear B/L
Abd-soft, NT, ND
Ext-diffuse left upper extremity edema
Musculoskeletal-no cyanosis, clubbing
Skin-warm and dry
Intentional drug overdose - requiring intubation for airway protection.
- reportedly took 30 of 60 Klonopin pills and reportedly drove to [place] [address] [employer] to take a 'speed ball'. Unclear if related to suicide attempt.
- vent/sedation management per ICU team. currently on Precedex and Propofol drips
- leather restraints
- currently on Zyprexa TID prn
- watch for signs of opiate withdrawal although reportedly a binge user, not daily. Daily Oxycodone started.
- psych consulted for evaluation post-extubation
Polysubstance abuse -patient just discharged from [facility] prior to this admission. UDS positive for buprenorphine, Methadone, Fentanyl, Benzos, Cocaine.
Currently on [id number]-[id number] oxycodone to prevent withdrawal. Consider switching to Buprenex per opioid withdrawal protocol. Defer to intensive care team.
Diffuse left upper extremity edema -likely due to IV infiltration. Discussed with nursing. Obtain Doppler ultrasound, rule out DVT.
Bipolar disorder, anxiety, substance abuse
- home meds include Bupropion, Clonazepam, Hydroxyzine pamoate, Olanzapine, Lyrica
- recently at [facility] - obtain records
- Psych consulted
Aspiration pneumonia -presumed diagnosis.
- IV Unasyn started 12/10, plan on 7-day course.
hx of Hep C
Obesity due to excess calories
DVT ppx: Lovenox
Code: Full
Anticipated Discharge: > 48 hours
Subjective/Interval History
-
Date of Service: December 13, 2024
Patient seen and examined. Sedated, intubated. Looks comfortable. In restraints.
Objective Data
-
Labs:
Laboratory Results
12/13/24 12/13/24
03:28 Unknown
WBC 7.4
Hgb 11.6 L
Hct 34.7 L
Plt Count 205
HCO3 25.4
Sodium 141
Potassium 4.0
Chloride 107
Carbon Dioxide 24
BUN 17
Creatinine 0.8
Glucose 115 H
Calcium 8.3 L
Vital Signs:
Vital Signs
Temp Pulse Resp BP Pulse Ox
98.2 F 78 16 101/68 97
12/13/24 07:37 12/13/24 06:30 12/13/24 06:30 12/13/24 06:30 12/13/24 06:00
I&O
12/12/24 12/13/24 12/14/24
06:59 06:59 06:59
Intake Total 1943.9 / 1993.8 3127.1 / 3127.1
Output Total 2750 / 2800 2695 / 2695
Balance -806.1 / -806.2 432.1 / 432.1
Review of Systems
-
Unable to obtain full review of systems at this time due to: Acuity and Patient Intubation
--- NOTE | 2024-12-13 07:58 | PTCARENOTE ---
report received. assessments per work list. upon slightest stimulation, patient became aggressive, kicking and attempting to extubate self. unable to redirect. required [address] Aragon at bedside, placed in 4 point restraints,
propofol and precedex adjustment per work list. makes eye contact but does not follow commands. cuff leak, RT at bedside. ett suctions for large amounts ruiz white blood tinged secretions. rhonchi throughout. left arm with increased edema,
hospitalist updated, orders received. ogt placement verified, tube feeds per orders. mancia draining yellow urine.
[2024-12-13] MEDS: SUBLIMAZE 100 IV ×2 (09:17→19:28)
[2024-12-13] MEDS: SUBLIMAZE 50 MCG IV ×2 (12:22→16:56)
--- NOTE | 2024-12-13 12:40 | PTCARENOTE ---
Attempting to wean off Propofol with increased dose of Fentanyl. Propofol down to 20mcg/kg/min and Fentanyl at 100mcg/hr and pt suddenly, and w/o any stimulation became extremely agitated, aggressively pulling on all four restraints, trying to
swing/kick at me and mouthing expletives, as well as bucking vent. Unable to reason with or orient pt to situation. Fentanyl 50mcg IV bolus given w/ minimal effect. Propofol gtt required increase back to 35mcg/kg/min to calm pt. Dr Moses notified
of events. order received to increase Fentanyl gtt to 100mcg/hr at this time with stated plan to order Ativan prn to assist in decreasing/discontinuing Propofol.
--- NOTE | 2024-12-13 14:48 | PN.CDI ---
CDI
- -
CDI:
Physician Documentation Request
Admit Date: 12/09/24 20:03
Dear Doctor ,
Please review the following and provide your response in the progress notes.
Clinical Indicators:
Pt admitted with opiate overdose /aspiration pneumonia/ intubated in ED for airway protection
Progress note 12/12,' s/p IV Lasix x 1 for pulm edema...'
Clarify which of the following accurately represents the acuity of the ( pulm edema ).
Acute
Chronic
Acute on Chronic
Other ( please specify)
Use of terms such as suspected, likely, concern for, or probable (associated with a specific diagnosis that is being evaluated, monitored, or treated as if it exists) are acceptable and can be coded in the inpatient setting, when documented at the
time of discharge.
Thank you,
Deonna Novak RN
CDI Specialist
[facility]
Please use your independent medical judgment in providing your response.
[2024-12-13] MEDS: NSS (PRESERVATIVE FREE) 1 ML IV ×2 (15:01→17:14)
[2024-12-13] MEDS: ATIVAN 2 MG IV ×2 (15:01→17:14)
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
[2024-12-13] MEDS: LOVENOX 100 MG SC (16:38)
--- NOTE | 2024-12-13 16:38 | CM ---
Chart reviewed and patient is intubated, in restraints, will await psychiatry recommendations to assist with discharge planning needs.
Plan; To follow with progress. Psychiatry evaluation.
--- NOTE | 2024-12-13 16:45 | PTCARENOTE ---
Pt straight cath as documented for bladder scan >1000ml after not voiding since Bloom removed. Pt tolerated well. Ativan administered as documented in MAR and tapering Propofol gtt per documentation in work list intervention. Pt occasionally
restless although able to follow commands (squeezed both hands and wiggled toes on both feet) and calms/returns to rest following reorientation and emotional support. Tube feedings remain off per Dr Moses with plans to leave off overnight if pt not
extubated. Phone call from pt's Significant other- updated on pt's present condition/plan of care. Safe environment maintained. No additional changes from previous assessment findings. Will continue to monitor
--- NOTE | 2024-12-13 19:15 | PTCARENOTE ---
Patient received lying in bed, intubated on a ventilator, sedated on Propofol, Fentanyl and Precedex. See assessment charted on flowsheet. Afebrile, VSS. SR on CM with 1st degree AVB. Condom cath in place with yellow green urine. Oral care and oral
suctioning every 4 hours and prn. Vent settings verified. Opens eyes to tactile stimuli and immediately becomes agitated pulling at bilateral soft wrist restraints. Propofol increased slightly for adequate sedation. Bilateral arms elevated on
pillows. SCDs in place. IV sites right hand x 2 WDL. Repositioned every 2 hours. Bilateral soft wrist restraints checked and retied, checked every 2 hours. BBS coarse, small amount of secretions via ETT. Bed low and in locked position. Hourly
rounding on patient.
--- NOTE | 2024-12-13 22:00 | PTCARENOTE ---
HNV via condom catheter. Bladder scanned for 771. Straight cath via sterile technique for 1050cc cloudy yellow urine. Condom catheter replaced.
[2024-12-14] VITALS (25 sets, daily range): BP systolic 95–116; BP diastolic 60–79; BMI 34.2
--- NOTE | 2024-12-14 | PTCARENOTE ---
Assessment essentially unchanged. VSS. Oral care, suctioned. Repositioned, restraints checked.
[2024-12-14] MEDS: PRECEDEX 100 IV ×7 (01:12→22:28)
[2024-12-14] MEDS: LOVENOX 100 MG SC ×2 (03:59→16:06)
[2024-12-14] MEDS: DIPRIVAN 100 IV (03:59)
--- NOTE | 2024-12-14 04:00 | PTCARENOTE ---
Physical assessment unchanged. BBS remain coarse despite suctioning with scant amount via ETT. Moderate amount of secretions orally. Complete cares given with CHG cloth bath. Complete linen change. Bladder scanned for 872, Straight cath for 1100cc.
Juan José ROJAS aware. Will continue to bladder scan and straight cath for now.
[2024-12-14] MEDS: ROXICODONE ORAL SOLUTION 10 MG TUBE (05:22)
[2024-12-14] MEDS: UNASYN IV ×3 (05:22→17:46)
--- NOTE | 2024-12-14 06:35 | PTCARENOTE ---
Patient is severely agitated, sitting upright in bed, pulling on bilateral wrist restraints and kicking bottom of the bed. Emotional support and encouragement given as needed. Patient does not calm with redirection. Prn Fentanyl and prn Ativan given
for severe agitation, Diprivan gtt increased back to 25mcg as per previous. Patient had to be physically restrained to keep him from sitting up and reaching for his ETT. Patient eventually calmed with interventions/medications.
[2024-12-14] MEDS: SUBLIMAZE 50 MCG IV (06:41)
[2024-12-14] MEDS: ATIVAN 2 MG IV ×2 (06:47→11:17)
--- NOTE | 2024-12-14 07:24 | PTCARENOTE ---
Report given verbally to RN Disa who is assuming care. Questions answered.
[2024-12-14] MEDS: SUBLIMAZE 100 IV (07:31)
[2024-12-14] MEDS: NSS (PRESERVATIVE FREE) 10 ML IV ×2 (07:32→11:17)
[2024-12-14] MEDS: PROTONIX IV 40 MG IV (07:32)
--- NOTE | 2024-12-14 07:37 | W.PN.HOSP.TC ---
Addendum entered and electronically signed by Hector Francisco DO 12/14/24 14:19:
Acute toxic encephalopathy due to multiple drugs of abuse, present on admission.
Original Note:
Today's Communication/Plan
-
Ventilator weaning as able
Assessment / Plan
Assessment / Plan
Gen-sedated, intubated
HEENT-NC, AT, anicteric, clear oral mm
Neck-supple
CV-reg, no M, +S1/S2
Lungs-clear B/L
Abd-soft, NT, ND
Ext-diffuse left upper extremity edema
Musculoskeletal-no cyanosis, clubbing
Skin-warm and dry
Acute hypoxic respiratory failure -intubated for airway protection on admission. Chest x-ray from 12/13 shows bibasilar opacity slightly improved. Possibly resolving subsegmental atelectasis.
Intentional drug overdose - requiring intubation for airway protection.
- reportedly took 30 of 60 Klonopin pills and reportedly drove to [employer] to take a 'speed ball'. Unclear if related to suicide attempt.
- vent/sedation management per ICU team.
- leather restraints
- currently on Zyprexa, Precedex, fentanyl
- watch for signs of opiate withdrawal although reportedly a binge user, not daily. Daily Oxycodone started.
- psych consulted for evaluation post-extubation
Polysubstance abuse -patient just discharged from [facility] prior to this admission. UDS positive for buprenorphine, Methadone, Fentanyl, Benzos, Cocaine.
Currently on iwrhir-byv-tclkh oxycodone to prevent withdrawal. Consider switching to Buprenex per opioid withdrawal protocol. Defer to intensive care team.
Acute left upper extremity superficial vein thrombosis -left basilic vein, likely triggered by PICC line. Left upper extremity edema improving. PICC line removed. On full dose Lovenox per food services coordinator.
Bipolar disorder, anxiety, substance abuse
- home meds include Bupropion, Clonazepam, Hydroxyzine pamoate, Olanzapine, Lyrica
- recently at [facility] - obtain records
- Psych consulted
Aspiration pneumonia -presumed diagnosis.
- IV Unasyn started 12/10, plan on 7-day course.
hx of Hep C
Obesity due to excess calories
DVT ppx: Lovenox
Code: Full
Anticipated Discharge: > 48 hours
Subjective/Interval History
-
Date of Service: December 14, 2024
Patient seen and examined. Sedated, intubated.
Objective Data
-
Vital Signs:
Vital Signs
Temp Pulse Resp BP Pulse Ox
99.1 F 76 16 98/67 95
12/13/24 23:32 12/14/24 07:00 12/14/24 07:00 12/14/24 07:00 12/14/24 05:00
I&O
12/13/24 12/14/24 12/15/24
06:59 06:59 06:59
Intake Total 3127.1 / 3233.6 2226.1 / 2226.1
Output Total 2695 / 2745 3500 / 3500
Balance 432.1 / 488.6 -1273.9 / -1273.9
Review of Systems
-
Unable to obtain full review of systems at this time due to: Acuity and Patient Intubation
--- NOTE | 2024-12-14 09:44 | PTCARENOTE ---
Pt rec'd from night RN sedated and intubated, Prop/fent/dex infusing to right hand PIV. VSS. Pt arouses easily to voice, able to follow commands and JEREZ. [address] for safety. Plan discussed in rounds, will wean prop and fent, utilize
PRN Ativan for agitation and hopefully extubate today. Tube feeds remain on hold. Bladder scan and straight cath protocol followed. Pt updated on plan, nods agreement. Medications and assessment as documented. Safe environment maintained.
[2024-12-14] MEDS: ZYPREXA 10 MG TUBE (09:49)
[2024-12-14] MEDS: KLONOPIN 0.5 MG TUBE (09:49)
[2024-12-14] MEDS: LYRICA 300 MG TUBE (09:49)
[2024-12-14] MEDS: NICODERM TRANSDERMAL 14 MG TRANSDERM (09:49)
[2024-12-14] MEDS: MIRALAX 17 GRAMS TUBE (09:51)
--- NOTE | 2024-12-14 10:22 | PTCARENOTE ---
Pt placed on wean for SAT/SBT at 9:59, fent and prop weaned to off (see worklist) pt is tolerating wean well, calm and cooperative, following commands. Safe environment continues.
--- NOTE | 2024-12-14 11:22 | PTCARENOTE ---
Pt tolerated wean for 1 hour, extubated to 35% CAM at 10:51. Pt now resting comfortably, medicated with PRN Ativan for increasing anxiety/agitation -pt reports 'I have really bad anxiety' -emotional support provided. Pt stated he does not use
opioids regularly. Dr. Crum at bedside to evaluate pt.
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
[2024-12-14] MEDS: ROXICODONE ORAL SOLUTION TUBE (12:36)
[2024-12-14] MEDS: ROXICODONE 10 MG PO ×2 (13:18→20:05)
--- NOTE | 2024-12-14 13:18 | W.PN.UPDATE ---
Update Note
Progress Note Update
Pt seen after extubated this morning, reviewed with staff. Pt denies intentional OD, denies recent or current SI. He denies being able to recall using the substances that were present in his UDS (multiple opioids, benzo, cocaine). Pt denying
current opioid dependence. Pt states he has been depressed and anxious, due to family stress, states his father is dying. Pt still groggy/sedated from intubation. Per PDMP, pt was given limited number of Klonopin 0.5 mg in late Oct and early
November. He was then prescribed Klonopin 1 mg #60 on 12/06/24.
Imp: Polysubstance use; hx of opioid use and Suboxone treatment- last in Aug 2024. Reportedly unintentional OD, denies any SI
Hx of Bipolar d/o, most recent episode depressed
Rec: Pt does not appear to require 1:1 supervision, need to reassess when fully awake. Will decrease Klonopin back to 0.5 mg BID (pt not established on 1 mg BID), agree with continuing existing Zyprexa 10 mg HS
will follow
--- NOTE | 2024-12-14 13:24 | PTCARENOTE ---
Pt complaining of feeling withdrawl sx, COWS score 16-medicated with 10 mg Roxicodone per orders. Pt agitated and angry stating 'I take fentanyl on the street and 3 30 mg oxi's everyday, 10 mg will do nothing for me, I won't be able to
sleep'...education provided and dex gtt titrated to 1.2 at this time. See MAR. Pt dozing intermittently.
--- NOTE | 2024-12-14 13:51 | PN.CDI ---
CDI
- -
CDI:
Physician Documentation Request
Admit Date: 12/09/24 20:03
Dear Doctor Nolan,
Please review the following and provide your response in the progress notes.
Clinical Indicators:
Pt admitted with opiate overdose /aspiration pneumonia/ intubated in ED for airway protection
Progress notes 12/13 & 12/14, ' - UDS +: Buprenorphine, Methadone, Fentanyl, Benzos, Cocaine vent/sedation management per ICU team. currently on Precedex and Propofol dripsleather restraints currently on Zyprexa TID prn watch for signs of opiate
withdrawal although reportedly a binge user, not daily. Daily Oxycodone started. '
Pt care note 12/13 @ 1915, ' Opens eyes to tactile stimuli and immediately becomes agitated pulling at bilateral soft wrist restraints. Propofol increased slightly for adequate sedation...Bilateral soft wrist restraints checked and retied, checked
...'
Pt care note 12/14 @ 0635,'Patient is severely agitated, sitting upright in bed, pulling on bilateral wrist restraints and kicking bottom of the bed. Emotional support and encouragement given as needed. Patient does not calm with redirection. Prn
Fentanyl and prn Ativan given for severe agitation, Diprivan gtt increased back to 25mcg as per previous. Patient had to be physically restrained to keep him from sitting up and reaching for his ETT...'
Based on the above, could you clarify in the Progress Notes and Discharge Summary which, if any of the following, is the most likely etiology of the confusion/altered mental status.
Toxic Metabolic Encephalopathy
Metabolic Encephalopathy
Acute delirium
Other ( please specify)
Use of terms such as suspected, likely, concern for, or probable (associated with a specific diagnosis that is being evaluated, monitored, or treated as if it exists) are acceptable and can be coded in the inpatient setting, when documented at the
time of discharge.
Thank you,
Deonna Novak RN
CDI Specialist
[place] [facility]
Please use your independent medical judgment in providing your response.
[2024-12-14] MEDS: ATIVAN 1 MG IV ×3 (14:16→22:37)
[2024-12-14] MEDS: NSS (PRESERVATIVE FREE) 1 ML IV ×2 (14:17→18:36)
--- NOTE | 2024-12-14 14:57 | CM ---
CM following re: discharge planning.
Reviewed pt's chart, met with pt.
Per Rounds meeting, pt extubated today, continue supportive care.
CM has a brief conversation with the pt today and pt expressed his agreement to go to inpatient D&A rehab.
Psychiatry updated note noted.
CM spoke to PO Americo Ovalle [phone] and updated him on pt's progress.
A referral to [facility] made.
D/C plan: inpatient residential D&A rehab. [facility] following.
CM will follow with discharge plan updates as hospitalization progresses
[2024-12-14] MEDS: ZOFRAN 4 MG IV (16:06)
--- NOTE | 2024-12-14 16:54 | PTCARENOTE ---
Pt intermittently drowsy/annoyed, wanting to talk to doctor 'why won't they detox me the right way?' otherwise VSS on 2L, medicated with PRNs as per worklist. Pt tolerating regular diet, craving sweet foods, voiding in urinal with assistance.
Precedex gtt continues -see worklist for titration. Bed alarm in place.
[2024-12-14] MEDS: DULCOLAX 10 MG RECTAL (17:46)
--- NOTE | 2024-12-14 18:08 | PTCARENOTE ---
Pt voiding small amounts throughout shift, Bladder scanned for >920, only able to void 175 mls, straight cath performed for 1175 mls yellow urine. Full CHG bath and linen change done, suppository administered per orders for no BM. Pt repositioned,
call lancaster in hand, watching TV and sleeping when undisturbed.
[2024-12-14] MEDS: LYRICA 300 MG PO (20:00)
[2024-12-14] MEDS: KLONOPIN 0.5 MG PO (20:01)
[2024-12-14] MEDS: ZYPREXA 10 MG PO (21:28)
[2024-12-14] MEDS: NSS (PRESERVATIVE FREE) 0.25 ML IV (22:37)
[2024-12-15] VITALS (20 sets, daily range): BP systolic 103–148; BP diastolic 65–104; PULSE 100–126; O2SAT 100; BMI 33.2
[2024-12-15] MEDS: UNASYN IV ×2 (00:31→05:51)
[2024-12-15] MEDS: PRECEDEX 100 IV ×3 (01:15→07:18)
--- NOTE | 2024-12-15 01:30 | PTCARENOTE ---
Pt c/o full bladder. Pt having difficulty emptying bladder. Pt post void scan was 1110. Pt straight cathed for 1300.
[2024-12-15] MEDS: LOVENOX 100 MG SC ×2 (04:30→16:19)
[2024-12-15] MEDS: ROXICODONE 10 MG PO ×2 (04:30→11:02)
[2024-12-15] MEDS: NSS (PRESERVATIVE FREE) 0.5 ML IV (04:48)
[2024-12-15] MEDS: ATIVAN 1 MG IV (04:49)
[2024-12-15] MEDS: KLONOPIN 0.5 MG PO ×2 (07:44→19:30)
[2024-12-15] MEDS: MIRALAX 17 GRAMS PO (07:45)
[2024-12-15] MEDS: NICODERM TRANSDERMAL 14 MG TRANSDERM (07:45)
[2024-12-15] MEDS: LYRICA 300 MG PO ×2 (07:45→19:30)
--- NOTE | 2024-12-15 08:31 | W.PN.HOSP.TC ---
Today's Communication/Plan
-
Continue current care
Assessment / Plan
Assessment / Plan
Gen-awake, not alert
HEENT-NC, AT, anicteric, clear oral mm
Neck-supple
CV-reg, no M, +S1/S2
Lungs-clear B/L
Abd-soft, NT, ND
Ext-diffuse left upper extremity edema
Musculoskeletal-no cyanosis, clubbing
Skin-warm and dry
Acute hypoxic respiratory failure -intubated for airway protection on admission. Chest x-ray from 12/13 shows bibasilar opacity slightly improved. Possibly resolving subsegmental atelectasis. Extubated 12/14. Stable on 2 L nasal cannula. Can
transition out of ICU today.
Intentional drug overdose - requiring intubation for airway protection.
- reportedly took 30 of 60 Klonopin pills and reportedly drove to [employer] to take a 'speed ball'. Unclear if related to suicide attempt.
- vent/sedation management per ICU team.
- leather restraints
- currently on Zyprexa, Precedex, fentanyl
- watch for signs of opiate withdrawal although reportedly a binge user, not daily. Daily Oxycodone started.
-Psychiatry following.
Polysubstance abuse -patient just discharged from [facility] prior to this admission. UDS positive for buprenorphine, Methadone, Fentanyl, Benzos, Cocaine.
Currently on [id number] oxycodone to prevent withdrawal.
Recommend transitioning to Buprenex per protocol, pharmacy to assist. Discussed with fruit or nut farmer. Patient was previously on Buprenex and is agreeable to resume. He regrets coming off of it.
Acute left upper extremity superficial vein thrombosis -left basilic vein, likely triggered by PICC line. Left upper extremity edema improving. PICC line removed. On full dose Lovenox per fruit or nut farmer.
Bipolar disorder, anxiety, substance abuse
- home meds include Bupropion, Clonazepam, Hydroxyzine pamoate, Olanzapine, Lyrica
- recently at [facility] - obtain records
- Psych consulted
Aspiration pneumonia -presumed diagnosis.
- IV Unasyn started 12/10, plan on 7-day course.
hx of Hep C
Obesity due to excess calories
DVT ppx: Lovenox
Code: Full
Anticipated Discharge: > 48 hours
Subjective/Interval History
-
Date of Service: December 15, 2024
Patient seen and examined. No complaints currently but does fall asleep after conversing.
Objective Data
-
Vital Signs:
Vital Signs
Temp Pulse Resp BP Pulse Ox
98.2 F 83 12 103/74 95
12/14/24 21:35 12/15/24 05:00 12/15/24 05:00 12/15/24 05:00 12/15/24 05:00
I&O
12/14/24 12/15/24 12/16/24
06:59 06:59 06:59
Intake Total 2226.1 / 2277.8 2471.4 / 2471.4
Output Total 3500 / 3500 2775 / 2775
Balance -1273.9 / -1222.2 -303.6 / -303.6
Review of Systems
-
Unable to obtain full review of systems at this time due to: Acuity
History Source: Patient
All other systems: Reviewed and negative
--- NOTE | 2024-12-15 09:46 | PTCARENOTE ---
Update patient via phone. Updated plan of cares. Update with social service agency director team possible transfer from ICU. Prescedex weaned off. Follow up medication plan with pharmacy and MD as per orders. Patient voided 750ml with assist, Out of bed to chair
then to commode with positive BM. Continue to review and reinforce plan of cares. Emotional and supportive cares ongoing.
--- NOTE | 2024-12-15 11:20 | PTCARENOTE ---
PT/OT at bedside. Continue follow up evaluation for mobility protocols. Continue ongoing teaching and reinforcement. Patient remains apologetic, hopeful for recovery. Continues to cooperate and interact appropriately with staff.
[2024-12-15] MEDS: SENOKOT 8.6 MG PO ×2 (11:53→19:30)
[2024-12-15] MEDS: AUGMENTIN 875 MG/125 MG 1 TABLET PO ×2 (11:53→19:30)
[2024-12-15] MEDS: ATIVAN 1 MG PO (11:53)
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
[2024-12-15] MEDS: SUBUTEX 4 MG SL ×3 (12:35→23:48)
--- NOTE | 2024-12-15 13:23 | PTCARENOTE ---
Patient continues to work with staff. In and out of bed to chair. Ambulating to bathroom with supervision light assist. Continue follow up safety rounds and patient checks. Call lancaster in use. Follow up medications with pharmacy. Follow up plan of
cares with hospitalist, psych at bedside with be/cares team. Continue with supportive cares and emotional support. Reinforce psoitive patient progress in ICU. Update with poison controll. COWs scale trend Q4 to assist with follow up needs.
--- NOTE | 2024-12-15 13:36 | W.PN.UPDATE ---
Update Note
Progress Note Update
patient seen chart reviewed. discussed w claritza, cm, and pharmacist. the patient was alert and cooperative . he describe a very long hx of polysubstance abuse with months long periods of sobriety. he has been at several local rehabs the last [facility] prior to the overdose. he was there for about eight days and was admitted for depression anxiety and substance abuse. he was dced he thinks on clonazepam wellbutrin lyrica. he had been taking some version of suboxone but stopped it three
months before largely bc his gf wanted him to be off it. he believes it was a mistake at this point and contributed to his relapse. he felt anxious all the time and the overdose which precipitated this admit was he felt due to his overwhelming
anxiety and panic not bc he wanted to . he said he does not want to bc he has two kids he wants to help raise one being his child and the other the child of his gf. he had attended [facility] periodically but never fully engaged eg did not
have a sponsor. he did have a therapist marielos at [facility] and a therapist's assistant to prescribe for him. he was extubated yesterday and is awake and alert. .he has taken many antidepressants and feelst he ssri's caused sexual side effects and weight gain.
he will not take them again. he did feel wellbutrin was rather helpful. it is noted he is now taking oxycodone prn pain receiving one dose today also bc cows was high. he has started on buprenorphine today. he has a prn for ativan and a small dose
of klonopin o.5 mg bid. he is very fearful of not being on a benzo. nursing mentioning patient was difficult last evening/night. struggling to void easily and very annoyed that he was not being 'detoxed the right way'. he is much more agreeable
today. cm has spoke to patient's probation office. if he refuses rehab he will be court ordered to go. he has hx of dui.
patient was a little physically uncomfortable. speech and thought process normal. mood was anxious affect ok he was not suicidal or psychotic aver intelligence insight judgment fair but vary with stress and frustration
plan discussed w pharmacist. will cut back ativan on o.5 mg. continue klonopin for now. stop oxycodone as suboxone comes on board. halved zyprexa. patient will gain massive weight with it and it is not clear to me he needs it. melatonin at hs to
compensate possibly for dec in zyprexa at hs. consider lamictal gabapentin depakote if needed for agitation or anxiety patient does not seem to me to have hx bipolar (he denies periods of inc energy dec need for sleep racing thoughts high
productivity labile mood when sober) but it is worth thinking about. will follow
--- NOTE | 2024-12-15 13:59 | CM ---
CM following re: discharge planning.
Reviewed pt's chart, met with pt.
CM met with pt and [facility] CRS Byron alexander. Pt expressed his agreement to go to inpatient D&A rehab. Pt stated he was before at [facility] and his preference will be [facility] [place]. Pt stated he underhands that his sobriety will help to
restore his relationship with his fiance and 3 year old son. Pt stated he also has a daughter from previous relationship. Pt stated he agrees that his sobriety will fix a broken relationship with his parents.
Psychiatry updated note noted. Psychiatrist agrees with a plan for pt to go to inpatient residential D&A rehab.
CM spoke to PO Americo Ovalle [phone] and updated him on pt's progress.
D/C plan: inpatient residential D&A rehab. [facility] following.
CM will follow with discharge plan updates as hospitalization progresses
[2024-12-15] MEDS: ZANAFLEX 2 MG PO (14:33)
[2024-12-15] MEDS: TYLENOL 650 MG PO ×2 (14:33→22:25)
[2024-12-15] MEDS: ZOFRAN 4 MG IV ×2 (14:57→20:58)
--- NOTE | 2024-12-15 15:20 | PTCARENOTE ---
Improved assessment thru day. Patient discussing treatment options. Talking with family to help make decisions about recovery. Very tearful, remorseful for behaviors and expressing thankfulness for help. Continue to reinforce plan of cares,
reinforce follow up concerns, continue supportive cares.
[2024-12-15] MEDS: ATIVAN 0.5 MG PO ×2 (16:19→22:22)
[2024-12-15] MEDS: COMPAZINE 10 MG IV (17:17)
--- NOTE | 2024-12-15 17:43 | PTCARENOTE ---
Patient experiencing nausea and vomiting with anxiety. Follow up medications with MD and pharmacy. Assist patient back and forth to bathroom, ambulate room sit in chair. Continue follow up with embedded systems software engineer. Follow COW's trends. Patient very
remorseful, blamming episode of withdraw on the amount of daily benzo use. (15-25mg daily) Remains tearful and apologetic. Continue trends. Will follow medications with pharmacy.
[2024-12-15 18:54] LABS: Triglycerides 184 mg/dl (10-149)
--- NOTE | 2024-12-15 21:11 | PTCARENOTE ---
Pt received start of shift, HR SR/ST. Pt diaphoretic, restless, agitated, nauseous - requesting subutex. PRN subutex administered - see NOV. Educated pt on plan of care, pt agreeable. at bedside.
[2024-12-15] MEDS: MELATONIN 10 MG PO (22:22)
[2024-12-15] MEDS: ZYPREXA 5 MG PO (22:22)
--- NOTE | 2024-12-16 01:00 | PTCARENOTE ---
Reassessed pt. PRN tylenol for OSORIO, subutex, and ativan - see NOV. Pt continues to experience nausea and diaphoresis. Slight agitation, not directed at staff. Standby assist to bathroom - gait unsteady.
[2024-12-16] MEDS: LOVENOX 100 MG SC (05:11)
[2024-12-16] MEDS: TYLENOL 650 MG PO ×2 (05:12→14:42)
[2024-12-16] MEDS: ZOFRAN 4 MG IV (05:12)
[2024-12-16] MEDS: ATIVAN 0.5 MG PO ×2 (05:12→20:04)
[2024-12-16 05:19] VITALS: BP 153/95
[2024-12-16 06:00] VITALS: BMI 31.3
[2024-12-16 06:23] LABS: Blood Urea Nitrogen 18 mg/dl (9-20); Calcium 9.8 mg/dl (8.4-10.2); Carbon Dioxide 26 mmol/L (22-30); Chloride 103 mmol/L (98-107); Estimated Creatinine Clearance > 125 ml/min; Glucose 115 mg/dl (70-99); Magnesium 2.2 mg/dl (1.6-2.3); Potassium 4.6 mmol/L (3.5-5.1); Sodium 140 mmol/L (135-145); eGFR > 60.00
--- NOTE | 2024-12-16 07:49 | W.PN.HOSP.TC ---
Addendum entered and electronically signed by Hector Francisco DO 12/16/24 15:01:
Correction: Unintentional drug overdose. Not suicidal.
Original Note:
Today's Communication/Plan
-
Add ibuprofen as needed
Lower dose of Lovenox
Discharge planning
Assessment / Plan
Assessment / Plan
Gen-awake, alert, oriented, NAD
HEENT-NC, AT, anicteric, clear oral mm
Neck-supple
CV-reg, no M, +S1/S2
Lungs-clear B/L
Abd-soft, NT, ND
Ext-improving left upper extremity edema
Musculoskeletal-no cyanosis, clubbing
Skin-warm and dry
Neuro-grossly nonfocal
Acute hypoxic respiratory failure -intubated for airway protection on admission. Chest x-ray from 12/13 shows bibasilar opacity slightly improved. Possibly resolving subsegmental atelectasis. Extubated 12/14. Oxygenation much improved, now on room
air.
Intentional drug overdose - required intubation for airway protection.
- reportedly took 30 of 60 Klonopin pills and reportedly drove to [employer] to take a 'speed ball'. Unclear if related to suicide attempt.
Polysubstance abuse -patient just discharged from [facility] prior to this admission. UDS positive for buprenorphine, Methadone, Fentanyl, Benzos, Cocaine.
Currently on [id number] oxycodone to prevent withdrawal.
Continue buprenorphine. Vital signs improving. Continue opiate withdrawal protocol.
Acute left upper extremity superficial vein thrombosis -left basilic vein, likely triggered by PICC line. PICC line removed. Edema significantly improved. Patient denies any pain. Will change Lovenox back to prophylactic doses. No indication for
repeat imaging.
Bipolar disorder, anxiety, substance abuse
- home meds include Bupropion, Clonazepam, Hydroxyzine pamoate, Olanzapine, Lyrica
- recently at [facility]
- Psych consulted
Aspiration pneumonia -presumed diagnosis. Complete course of antibiotics, now on Augmentin.
hx of Hep C
Obesity due to excess calories
Code: Full
Dispo -anticipate discharge to drug and alcohol rehab. Medically stable for discharge.
Anticipated Discharge: Within 24 hours
Subjective/Interval History
-
Date of Service: December 16, 2024
Patient seen and examined. Overall feeling much better. Complaining of mild headache.
Objective Data
-
Labs:
Laboratory Results
12/16/24
05:35
Sodium 140
Potassium 4.6
Chloride 103
Carbon Dioxide 26
BUN 18
Creatinine 0.7
Glucose 115 H
Calcium 9.8
Vital Signs:
Vital Signs
Temp Pulse Resp BP Pulse Ox
98.0 F 88 13 153/95 97
12/16/24 03:30 12/16/24 06:00 12/16/24 06:00 12/16/24 05:19 12/15/24 18:12
I&O
12/15/24 12/16/24 12/17/24
06:59 06:59 06:59
Intake Total 2471.4 / 2497.5 2559.1 / 2559.1
Output Total 2775 / 2775 1500 / 1500
Balance -303.6 / -277.5 1059.1 / 1059.1
Review of Systems
-
History Source: Patient
All other systems: Reviewed and negative
[2024-12-16] MEDS: SENOKOT 8.6 MG PO ×2 (08:15→20:04)
[2024-12-16] MEDS: KLONOPIN 0.5 MG PO (08:15)
[2024-12-16] MEDS: NICODERM TRANSDERMAL 14 MG TRANSDERM (08:16)
[2024-12-16] MEDS: LYRICA 300 MG PO ×2 (08:16→17:39)
[2024-12-16] MEDS: AUGMENTIN 875 MG/125 MG 1 TABLET PO ×2 (08:16→20:04)
[2024-12-16] MEDS: MIRALAX 17 GRAMS PO (08:16)
--- NOTE | 2024-12-16 08:30 | PTCARENOTE ---
Assumed care of pt. approx 0700.
Resting in bed, offers no complaints of pain or discomfort. Behaving appropriatly for developmental age.
No neurological deficits noted, anicteric/normocephalic, focally intact. Pupils =/R 3mm brisk response.
NSR w.o ectopy, QtC ranging mid 400s, Normotensive, Normothermic.
Good urine OP, bowel sounds present.
Ambulating w. Supervision.
Plan of care explained.
[2024-12-16] MEDS: SUBUTEX 4 MG SL (09:01)
[2024-12-16] MEDS: SUBUTEX 8 MG SL (10:03)
--- NOTE | 2024-12-16 12:21 | W.PN.UPDATE ---
Update Note
Progress Note Update
patient seen chart reviewed. spoke with nursing bcares and cm. patient is doing reasonably well. he is saying all the right things. acknowledging that sobriety will be hard. we talked about identifying the people places and things associated w his
addiction and making a plan to deal with them. he reaffirmed his resolve to do what it takes to be sober. he is agreeable to going directly to rehab. will be cutting back klonopin to 0.5 mg daily. he talked about his devotion to his kids and that
he has to get well for their sake as well as his. we discussed the concept of addiction as an illness and while it is not his 'fault' per se, only he can get himself well. discussed w nursing PT needs to get him up and walking rickey. he will likely
be downgraded to med surg shortly.
[2024-12-16 15:00] VITALS: BP 93/57
--- NOTE | 2024-12-16 15:18 | CM ---
Addendum entered by Serafin Orourke 12/16/24 15:36:
Per ELIZABETH Matthews, [facility] has many other questions regarding accepting the pt and [facility] is working on an alterative inpatient residential D&A rehab, possibly [facility].
Addendum entered by Serafin Orourke 12/16/24 15:27:
Per ELIZABETH Matthews, pt's updated clinical with tentative discharge summary must be faxed to [facility] tomorrow at [phone] in order for pt to be accepted.
Original Note:
CM following re: discharge planning.
Reviewed pt's chart, met with pt.
Pt expressed his agreement with going to inpatient residential D%A rehab and his preference is [facility].
Pt stated he was before at [facility] and his preference will be [facility] [place]. Pt stated he underhands that his sobriety will help to restore his relationship with his fiance and 3 year old son. Pt stated he also has a daughter from
previous relationship. Pt stated he agrees that his sobriety will fix a broken relationship with his parents.
Psychiatry updated note noted. Psychiatrist agrees with a plan for pt to go to inpatient residential D&A rehab.
ELIZABETH Matthews following, pt's clinical faxed to [facility] for a review.
CM spoke to SUAD Ovalle [phone] and updated him on pt's progress. Please call pt's probation offices to notify where pt goes at discharge.
D/C plan: inpatient residential D&A rehab. BCARES following.
CM will follow to assist opt with discharge to inpatient residential D&A rehab.
[2024-12-16] MEDS: LOVENOX 40 MG SC (16:49)
[2024-12-16] MEDS: MOTRIN 800 MG PO (16:52)
[2024-12-16] MEDS: ZOFRAN 4 MG PO (20:18)
[2024-12-16] MEDS: ZYPREXA 5 MG PO (21:19)
[2024-12-16] MEDS: MELATONIN 10 MG PO (21:19)
[2024-12-16 23:13] VITALS: BP 152/91
[2024-12-17] MEDS: ATIVAN 0.5 MG PO ×2 (01:49→13:01)
[2024-12-17 07:50] VITALS: BP 134/77
[2024-12-17 08:16] LABS: Hematocrit 42.4 % (39.0-52.0); Hemoglobin 14.4 g/dL (13.0-18.0); Mean Corpuscular Hgb 28.8 pg (27.0-31.0); Mean Corpuscular Volume 84.8 fL (80.0-94.0); Mean Platelet Volume 10.4 fL (7.4-10.4); Platelet Count 290 10^3/uL (130-400); Red Cell Dist. Width 13.1 % (11.5-14.5); White Blood Cell Count 9.3 10^3/uL (4.8-10.8)
[2024-12-17] MEDS: SENOKOT 8.6 MG PO (08:29)
[2024-12-17] MEDS: AUGMENTIN 875 MG/125 MG 1 TABLET PO (08:29)
[2024-12-17] MEDS: TYLENOL 650 MG PO (08:30)
[2024-12-17] MEDS: KLONOPIN 0.5 MG PO (08:30)
[2024-12-17] MEDS: NICODERM TRANSDERMAL 14 MG TRANSDERM (08:31)
[2024-12-17] MEDS: LYRICA 300 MG PO (08:31)
[2024-12-17] MEDS: MIRALAX 17 GRAMS PO (08:31)
--- NOTE | 2024-12-17 09:43 | W.PN.HOSP.TC ---
Addendum entered and electronically signed by Hector Francisco DO 12/17/24 12:15:
Patient cleared for discharge to inpatient drug and alcohol rehab.
He does not require ongoing physical therapy.
Original Note:
Today's Communication/Plan
-
Discharge planning
Assessment / Plan
Assessment / Plan
Gen-awake, alert, oriented, NAD
HEENT-NC, AT, anicteric, clear oral mm
Neck-supple
CV-reg, no M, +S1/S2
Lungs-clear B/L
Abd-soft, NT, ND
Ext-improving left upper extremity edema
Musculoskeletal-no cyanosis, clubbing
Skin-warm and dry
Neuro-grossly nonfocal
Acute hypoxic respiratory failure -intubated for airway protection on admission. Chest x-ray from 12/13 shows bibasilar opacity slightly improved. Possibly resolving subsegmental atelectasis. Extubated 12/14. Oxygenation much improved, now on room
air.
Unintentional drug overdose - required intubation for airway protection.
- reportedly took 30 of 60 Klonopin pills and reportedly drove to [employer] to take a 'speed ball'. Unclear if related to suicide attempt.
Polysubstance abuse -patient just discharged from [facility] prior to this admission. UDS positive for buprenorphine, Methadone, Fentanyl, Benzos, Cocaine.
Currently on [id number] oxycodone to prevent withdrawal.
Continue buprenorphine. Vital signs improving. Continue opiate withdrawal protocol.
Acute left upper extremity superficial vein thrombosis -left basilic vein, likely triggered by PICC line. PICC line removed. Edema significantly improved. Today patient complaining of mild discomfort in the arm. Getting prophylactic doses of
Lovenox. No indication for repeat imaging. Would not discharge on anticoagulation given rapid resolution of edema.
Bipolar disorder, anxiety, substance abuse
- home meds include Bupropion, Clonazepam, Hydroxyzine pamoate, Olanzapine, Lyrica
- recently at [facility]
- Psych consulted
Aspiration pneumonia -presumed diagnosis. Complete course of antibiotics, now on Augmentin.
hx of Hep C
Obesity due to excess calories
Code: Full
Dispo -anticipate discharge to drug and alcohol rehab. Medically stable for discharge.
Anticipated Discharge: Today
Subjective/Interval History
-
Date of Service: December 17, 2024
Patient seen and examined. Complaining of opioid withdrawal, asking for buprenorphine.
Objective Data
-
Labs:
Laboratory Results
12/17/24
07:46
WBC 9.3
Hgb 14.4 D
Hct 42.4
Plt Count 290 D
Vital Signs:
Vital Signs
Temp Pulse Resp BP Pulse Ox
97.5 F 107 16 134/77 96
12/17/24 07:50 12/17/24 07:50 12/17/24 07:50 12/17/24 07:50 12/17/24 07:50
I&O
12/16/24 12/17/24 12/18/24
06:59 06:59 06:59
Intake Total 2559.1 / 2559.1 300 / 300 320 / 320
Output Total 1500 / 1500 200 / 200
Balance 1059.1 / 1059.1 100 / 100 320 / 320
Review of Systems
-
History Source: Patient
All other systems: Reviewed and negative
[2024-12-17] MEDS: SUBUTEX 4 MG SL (09:54)
[2024-12-17] MEDS: SUBUTEX 8 MG SL (09:54)
[2024-12-17 10:17] VITALS: BP 128/86; PULSE 90; O2SAT 92
--- NOTE | 2024-12-17 12:33 | W.PN.UPDATE ---
Update Note
Progress Note Update
patient seen chart reviewed . patient tells me he is going to rehab today. he is dressed and ready to depart. noted that lyrica has been prescribed. bcares tells me that he cannot go to rehab on lyrica but gabapentin would be acceptable. have
dc'ed lyrica which was only started yesterday and ordered gabapentin 300 mg tid to start. patient will need to be reassessed re psych meds. would continue zyprexa for now as it affords some mood stability but would eventually switched to a mood
stabilizer which is less likely to cause weight gain. klonopin at present is once daily and should be dc'ed in a few days. patient had been on an antidepressant. not clear to me that he needs an antidepressant (had been on wellbutrin which he said
was for 'anxiety'....gabapentin could also serve that purpose) so to be determined once he has some days of sobriety under his belt. in my opinion buprenorphine is a good choice for him. psych will sign off.
--- NOTE | 2024-12-17 14:14 | W.DS.TRANS ---
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
-
Discharge Instructions:
Discharge Diagnosis/Procedures Opioid use disorder
Diet Regular
Activity As tolerated
Driving Restrictions Not until seen by your Dr
Bathing Restrictions None
Instructions:
Stand-Alone Forms:
Changes to Home Medications: No
Discharge Medications:
DC Medications w/original date entered in [facility]
pregabalin 300 mg capsule (Lyrica) 300 mg PO BID Neuropathy 12/09/24
nicotine (polacrilex) 2 mg buccal lozenge 2 mg buccal Q2HPRN PRN nicotine cravings 12/10/24
amoxicillin 875 mg-potassium clavulanate 125 mg tablet 1 tab PO Q12 #1 tab 12/17/24
bisacodyl 10 mg rectal suppository 10 mg ME [id number] PRN constipation #0 ea 12/17/24
buprenorphine HCl 2 mg sublingual tablet 4 mg (2 x 2 mg) sublingual DAILY #0 tabs 12/17/24
buprenorphine HCl 8 mg sublingual tablet 8 mg sublingual DAILY #0 tabs 12/17/24
clonazepam 0.5 mg tablet 0.5 mg PO DAILY #0 tabs 12/17/24
gabapentin 300 mg capsule 300 mg PO TID #0 caps 12/17/24
ibuprofen 800 mg tablet 800 mg PO Q6HPRN PRN headache #0 tabs 12/17/24
lorazepam 0.5 mg tablet 0.5 mg PO Q6HPRN PRN anxiety #0 tabs 12/17/24
melatonin 5 mg tablet 10 mg (2 x 5 mg) PO HS #0 tabs 12/17/24
nicotine 14 mg/24 hr daily transdermal patch 14 mg transdermal DAILY #0 ea 12/17/24
olanzapine 5 mg tablet 5 mg PO HS #0 tabs 12/17/24
polyethylene glycol 3350 17 gram oral powder packet 17 g PO DAILY #0 ea 12/17/24
sennosides 8.6 mg tablet (Carolann-joni) 8.6 mg PO BID #0 tabs 12/17/24
Home Medication Changes
Pending Results: No
[2024-12-17 15:00] VITALS: BP 140/91
[2024-12-17] MEDS: NEURONTIN 300 MG PO (15:08)
--- NOTE | 2024-12-17 15:46 | CM ---
Chart reviewed and multiple referrals sent today and patient has been accepted at [facility], they will pick patient up today, patient is aware and agreeable to plan.
Plan; [facility] [place] to pick patient up today for inpatient program.
== END 2024-12-17 15:09 | disposition other institution (70) | DRG 917 ==
LOC: 4 WEST ACU 20:03
PROVIDERS: Internal Medicine; Nurse Practitioner Primary Care; ADMITTING PHYSICIAN Internal Medicine; ATTENDING PHYSICIAN Hospitalist; EMERGENCY PHYSICIAN Student in an Organized Health Care Education/Training Program; OTHER PHYSICIAN Internal Medicine Critical Care Medicine
PROC: 5A1955Z Respiratory Ventilation, Greater than 96 Consecutive Hours (ICD-10-PCS; 2024-12-09)
PROC: 0BH17EZ Insertion of Endotracheal Airway into Trachea, Via Natural or Artificial Opening (ICD-10-PCS; 2024-12-09)
DX: T40.2X1A Poisoning by other opioids, accidental (unintentional), initial encounter (principal); G92.8 Other toxic encephalopathy; J96.01 Acute respiratory failure with hypoxia; J81.0 Acute pulmonary edema; T82.868A Thrombosis due to vascular prosthetic devices, implants and grafts, initial encounter; I82.612 Acute embolism and thrombosis of superficial veins of left upper extremity; T42.4X1A Poisoning by benzodiazepines, accidental (unintentional), initial encounter; D64.9 Anemia, unspecified; J34.2 Deviated nasal septum; Z78.1 Physical restraint status; R45.1 Restlessness and agitation; F31.9 Bipolar disorder, unspecified; E89.0 Postprocedural hypothyroidism; F17.200 Nicotine dependence, unspecified, uncomplicated; E66.09 Other obesity due to excess calories; B19.20 Unspecified viral hepatitis C without hepatic coma; Y84.8 Other medical procedures as the cause of abnormal reaction of the patient, or of later complication, without mention of misadventure at the time of the procedure; Z79.85 Long-term (current) use of injectable non-insulin antidiabetic drugs; Z79.899 Other long term (current) drug therapy; Z68.34 Body mass index [BMI] 34.0-34.9, adult; Z65.3 Problems related to other legal circumstances; Z87.820 Personal history of traumatic brain injury; Z87.81 Personal history of (healed) traumatic fracture
CPT/HCPCS: 31500; 36600; 70450; 71045; 80048; 80053; 80143; 80179; 80306; 80307; 82077; 82805; 82962; 83735; 83880; 84100; 84478; 85025; 85027; 85610; 85730; 87040; 87070; 87071; 87147; 87186; 87205; 87449; 87899; 93005; 93971; 94002; 94003; 94640; 96361; 96374; 96375; 97116; 97163; 97167; 97535; 99291; J2358